=== PATIENT | male | born 1960 | race Caucasian/White ===

== ENCOUNTER 2016-08-26 23:58 | Emergency (ER) | payer SELFPAY ==
[~2016-08-26] VITALS: Ht 177.8 cm; Wt 82.0 kg
[~2016-08-26 23:58] MED LIST: Z.0.NO CURRENT MEDS
[2016-08-27 00:31] VITALS: BP 148/87; PULSE 90; RESP 16; TEMP 98.7; O2SAT 100
--- NOTE | 2016-08-27 02:13 | PD ---
HPI Chief Complaint: Medical Clearance Time Seen by Provider: 00:40 Travel History International Travel<30 days: No Contact w/Intl Traveler<30days: No Traveled to known affect area: No History of Present Illness HPI So 56-year-old man who brought to the emergency department in police custody. He has a bump to his head is complaining of headache and right sided chest pain. There is no clear history as to what happened. The patient can't recall. Patient was reportedly trespassed out of [facility]. Unclear if he resisted or not. States she otherwise has been feeling generally well and healthy. No other complaints. Was drinking tonight. History Past Medical History Medical History: Denies Significant Hx Social History Alcohol Use: Yes Tobacco Use: Yes Allergies-Medications (Allergen,Severity, Reaction): Coded Allergies: Haldol (Verified Allergy, Unknown, 02/20/07) Reported Meds & Prescriptions Reported Meds & Active Scripts Active Reported No Current Meds (Miscellaneous Medication) Misc Review of Systems Except as stated in HPI: all other systems reviewed are Neg Physical Exam Narrative GENERAL: 56-year-old man, no acute distress. SKIN: Warm and dry. HEAD: Normocephalic. Contusion of Bruising on His Right Forehead. EYES: Pupils equal and round. No scleral icterus. No injection or drainage. ENT: No nasal bleeding or discharge. Mucous membranes pink and moist. NECK: No midline tenderness. Full range of motion of the neck. CARDIOVASCULAR: Regular rate and rhythm. No murmur appreciated. RESPIRATORY: No accessory muscle use. Clear to auscultation. Breath sounds equal bilaterally. GASTROINTESTINAL: Abdomen soft, non-tender, nondistended. Hepatic and splenic margins not palpable. MUSCULOSKELETAL: No obvious deformities. No clubbing. No cyanosis. No edema. NEUROLOGICAL: Awake, generally alert. Moves all extremities. Data Data Last Documented VS Vital Signs Date Time Temp Pulse Resp B/P Pulse Ox O2 Delivery O2 Flow Rate FiO2 08/27/16 00:37 80 08/27/16 00:31 98.7 16 148/[address] Brain W/O Iv Contrast(Rout) (08/27/16 ) Ct Cerv Spine W/O Contrast (08/27/16 ) Ribs, Uni (W/Exp Cxr-Min 3vw) (08/27/16 ) MDM Medical Decision Making Medical Screen Exam Complete: Yes Emergency Medical Condition: Yes Interpretation(s) Right sided rib x-rays: 04/26/12 posterior rib fractures. Probably subacute. Head CT: Right no acute intracranial findings. Right maxillary sinus disease. C-spine CT:No fracture. Multilevel degenerative findings. Differential Diagnosis Head injury, chest injury, other Narrative Course Medical decision making 56-year-old man, presents intoxicated with evidence of head injury and probable right sided rib injuries. Patient Recall what happened. He otherwise looks well though. Is no breathing difficulties. We'll check CT head, x-ray, reassess. FINAL: Workup shows posterior rib fractures, possibly subacute. Diagnosis Primary Impression: Fracture of rib of right side Qualified Code: S22.41XA - Closed fracture of multiple ribs of right side, initial encounter Additional Instructions: Use Naprosyn as needed for pain. Follow-up with your primary doctor in the next 2-4 days. Return to the emergency department for any new or worsening symptoms. Med/Other Pt SpecificInfo: Prescription(s) given Scripts Naproxen (Naprosyn)250 Mg Kse518 Mg PO BID #14 TAB Prov:Jose Enrique Crow MD 08/27/16 Disposition: 01 DISCHARGE HOME Condition: Stable Jose Enrique Crow MD Aug 27, 2016 02:13
--- NOTE | 2016-08-27 02:18 | RADRPT ---
EXAM DATE/TIME: 08/27/2016 01:40 [facility] COMPARISON: CT CERVICAL SPINE W/O CONTRAST, August 27, 2016, 1:40. INDICATIONS : Right rib pain. MEDICAL HISTORY : None. SURGICAL HISTORY : None. ENCOUNTER: Initial ACUITY: 1 day PAIN SCORE: 8/10 LOCATION: Right flank FINDINGS: 4 views of the right-sided ribs. Fractures of the posterior 11th and 12th ribs are seen on the right. There is a suggestion of some bone callus at these fracture sites favoring subacute age. CONCLUSION: Right-sided posterior 11th and 12th rib fractures. Appearance favors subacute age. Jonathan Griffin MD on August 27, 2016 at 2:12 Board Certified Radiologist. This report was verified electronically.
--- NOTE | 2016-08-27 02:21 | RADRPT ---
EXAM DATE/TIME: 08/27/2016 01:40 [facility] COMPARISON: No previous studies available for comparison. INDICATIONS : Trauma; fall. RADIATION DOSE: 32.46 CTDIvol (mGy) MEDICAL HISTORY : Cardiovascular disease. SURGICAL HISTORY : left tib/fib surgery ENCOUNTER: Initial ACUITY: 1 day PAIN SCALE: 5/10 LOCATION: cranial TECHNIQUE: Multiple contiguous axial images were obtained of the head. Using automated exposure control and adj ustment of the mA and/or kV according to patient size, radiation dose was kept as low as reasonably a chievable to obtain optimal diagnostic quality images. FINDINGS: CEREBRUM: The ventricles are normal for age. No evidence of midline shift, mass lesion, hemorrhage or acute in farction. No extra-axial fluid collections are seen. POSTERIOR FOSSA: The cerebellum and brainstem are intact. The 4th ventricle is midline. The cerebellopontine angle i s unremarkable. EXTRACRANIAL: Moderate mucosal thickening medial right maxillary sinus. SKULL: The calvaria is intact. No evidence of skull fracture. CONCLUSION: 1. No acute intracranial findings. 2. Right maxillary sinus disease. Jonathan Griffin MD on August 27, 2016 at 2:17 Board Certified Radiologist. This report was verified electronically.
--- NOTE | 2016-08-27 02:31 | RADRPT ---
EXAM DATE/TIME: 08/27/2016 01:40 [facility] COMPARISON: No previous studies available for comparison. INDICATIONS : Trauma; fall. RADIATION DOSE: 18.69 CTDIvol (mGy) MEDICAL HISTORY : Cerebrovascular disease. SURGICAL HISTORY : left tib/fib surgery ENCOUNTER: Initial ACUITY: 1 day PAIN SCALE: 5/10 LOCATION: neck TECHNIQUE: Volumetric scanning of the cervical spine was performed. Multiplanar reconstructions in the sagittal, coronal and oblique axial planes were performed. Using automated exposure control and adjustment o f the mA and/or kV according to patient size, radiation dose was kept as low as reasonably achievable to obtain optimal diagnostic quality images. FINDINGS: VERTEBRAE: Normal vertebral body height. No evidence of fracture. ALIGNMENT: No evidence of subluxation. Emphysematous findings of the lung apices. C2-C3: Moderate severity left-sided facet arthrosis. No evidence of focal disc protrusion. Central canal nor mal diameter. Neural foraminal diameters within normal limits. C3-C4: Moderate severity facet arthrosis left greater than right. Broad-based disc osteophyte complex. Centr al canal diameter within normal limits. Neural foraminal diameters within normal limits. C4-C5: Mild bilateral facet arthrosis. Broad-based disc osteophyte complex. No evidence of focal disc protru shlomo. Central canal normal diameter. Neural foraminal diameters within normal limits. C5-C6: Broad-based disc osteophyte complex and bilateral facet arthrosis. Mild central canal narrowing. Mild bilateral neural foraminal narrowing. C6-C7: Broad-based disc osteophyte complex. Bilateral facet arthrosis. Severe left and mild right neural for aminal narrowing. Mild central canal narrowing. C7-T1: Bilateral facet arthrosis. Central canal diameter within normal limits. Mild bilateral neural foramin al narrowing. CONCLUSION: No evidence of fracture. Multilevel degenerative findings. Jonathan Griffin MD on August 27, 2016 at 2:20 Board Certified Radiologist. This report was verified electronically.
[2016-08-27] MEDS ORDERED: NAPR250T57 PO (02:34)
[2016-08-27 04:00] VITALS: BP 145/77; PULSE 80; RESP 16; O2SAT 95
[2016-08-27 06:50] VITALS: BP 145/87
== END 2016-08-27 06:50 | disposition home or self-care (01) ==
LOC: NEPE 23:58
DX: S22.41XA Multiple fractures of ribs, right side, initial encounter for closed fracture (principal); J32.0 Chronic maxillary sinusitis; R07.89 Other chest pain; R51 Headache; F10.129 Alcohol abuse with intoxication, unspecified; Z72.0 Tobacco use; X58.XXXA Exposure to other specified factors, initial encounter
CPT/HCPCS: 70450; 71101; 72125

== ENCOUNTER 2016-09-13 14:48 | Inpatient (IN) | payer SELFPAY ==
[~2016-09-13] VITALS: Ht 170.2 cm; Wt 60.8 kg
[~2016-09-13 14:48] MED LIST changes: +NAPR250T57 PO
[2016-09-13 15:00] VITALS: BP 172/84; PULSE 102; RESP 24; TEMP 100.8; O2SAT 92
--- NOTE | 2016-09-13 15:07 | PD ---
HPI Chief Complaint: Respiratory Symptoms Time Seen by Provider: 15:06 Travel History International Travel<30 days: No Contact w/Intl Traveler<30days: No Traveled to known affect area: No History of Present Illness HPI 56-year-old male was brought to the emergency room by EMS with history of respiratory distress. Oxygen saturation was in the low 90s when they arrived. Patient says that he has had couple broken ribs that was diagnosed not too long ago. He has been having progressive shortness of breath for past couple days and worse today. He has history of COPD and he is a smoker. His temperature was 100.8 upon arrival to the emergency room. He looked in respiratory distress. He has been coughing greenish sputum as per EMS and the patient. Patient received albuterol nebulizer and IV Solu-Medrol by EMS. [facility] Past Medical History Narrative Medical List of his past medical, surgical, social and family history was reviewed from the nursing note. Cerebrovascular Accident: Yes (HX OF TIA'S.) Diminished Hearing: No Past Surgical History Appendectomy: Yes Social History Alcohol Use: Yes Tobacco Use: Yes Substance Use: Yes (pot daily) Allergies-Medications (Allergen,Severity, Reaction): Coded Allergies: Haldol (Verified Allergy, Unknown, 09/13/16) Comments List of his allergies reviewed from the nursing note. Reported Meds & Prescriptions Reported Meds & Active Scripts Active No Active Prescriptions or Reported Medications Narrative Medication List of his home medications reviewed from the nursing note. Review of Systems Except as stated in HPI: all other systems reviewed are Neg Physical Exam Narrative GENERAL: Awake, alert, disheveled, moderate distress, anxious SKIN: Focused skin assessment warm/dry. HEAD: Atraumatic. Normocephalic. EYES: Pupils equal and round. No scleral icterus. No injection or drainage. ENT: No nasal bleeding or discharge. Mucous membranes pink and moist. NECK: Trachea midline. No JVD. CARDIOVASCULAR: Regular rate and rhythm. No murmur appreciated. RESPIRATORY: Moderate respiratory distress, using accessory muscles for respiration, decreased air entry bilaterally with end expiratory wheeze. GASTROINTESTINAL: Abdomen soft, non-tender, nondistended. Hepatic and splenic margins not palpable. MUSCULOSKELETAL: No obvious deformities. No clubbing. No cyanosis. No edema. NEUROLOGICAL: Awake and alert. No obvious cranial nerve deficits. Motor grossly within normal limits. Normal speech. PSYCHIATRIC: Appropriate mood and affect; insight and judgment normal. Data Data Last Documented VS Vital Signs Date Time Temp Pulse Resp B/P Pulse Ox O2 Delivery O2 Flow Rate FiO2 09/13/16 15:15 97 Nasal Cannula 2 09/13/16 15:09 09/13/16 15:00 100.8 102 24 Orders Complete Blood Count With Diff (09/13/16 15:13) Comprehensive Metabolic Panel (09/13/16 15:13) Lactic Acid Sepsis Protocol (09/13/16 15:13) Urinalysis - C+S If Indicated (09/13/16 15:13) Influenzae A/B Antigen (09/13/16 15:13) Blood Culture (09/13/16 15:13) Chest, Single Ap (09/13/16 15:13) Blood Glucose (09/13/16 15:13) Ecg Monitoring (09/13/16 15:13) Iv Access Insert/Monitor (09/13/16 15:13) Oximetry (09/13/16 15:13) Oxygen Administration (09/13/16 15:13) Piperacil-Tazo 4.5 Gm Premix (Zosyn 4.5 (09/13/16 15:13) Sodium Chlor 0.9% 1000 Ml Inj (Ns 1000 M (09/13/16 15:13) Sodium Chlor 0.9% 1000 Ml Inj (Ns 1000 M (09/13/16 15:13) Sodium Chlor 0.9% 1000 Ml Inj (Ns 1000 M (09/13/16 15:13) Methylprednisolone So Succ Inj (Solumedr (09/13/16 16:15) Albuterol-Ipratropium Neb (Duoneb Neb) (09/13/16 16:15) Admit Order (Ed Use Only) (09/13/16 17:06) Labs Laboratory Tests Test 09/13/16 09/13/16 15:22 16:05 White Blood Count 5.4 TH/MM3 Red Blood Count 4.29 MIL/MM3 Hemoglobin 14.6 GM/DL Hematocrit 41.3 % Mean Corpuscular Volume 96.3 FL Mean Corpuscular Hemoglobin 34.0 PG Mean Corpuscular Hemoglobin 35.3 % Concent Red Cell Distribution Width 13.9 % Platelet Count 170 TH/MM3 Mean Platelet Volume 8.5 FL Neutrophils (%) (Auto) 56.6 % Lymphocytes (%) (Auto) 23.1 % Monocytes (%) (Auto) 20.0 % Eosinophils (%) (Auto) 0.1 % Basophils (%) (Auto) 0.2 % Neutrophils # (Auto) 3.0 TH/MM3 Lymphocytes # (Auto) 1.2 TH/MM3 Monocytes # (Auto) 1.1 TH/MM3 Eosinophils # (Auto) 0.0 TH/MM3 Basophils # (Auto) 0.0 TH/MM3 CBC Comment DIFF FINAL Differential Comment Sodium Level 132 MEQ/L Potassium Level 3.5 MEQ/L Chloride Level 96 MEQ/L Carbon Dioxide Level 27.7 MEQ/L Anion Gap 8 MEQ/L Blood Urea Nitrogen 12 MG/DL Creatinine 0.63 MG/DL Estimat Glomerular Filtration 131 ML/MIN Rate Random Glucose 121 MG/DL Lactic Acid Level 1.7 mmol/L Calcium Level 9.2 MG/DL Total Bilirubin 1.0 MG/DL Aspartate Amino Transf 65 U/L (AST/SGOT) Alanine Aminotransferase 108 U/L (ALT/SGPT) Alkaline Phosphatase 101 U/L Total Protein 7.9 GM/DL Albumin 3.4 GM/DL Folate 16.6 NG/ML Urine Color YELLOW Urine Turbidity CLEAR Urine pH 6.5 Urine Specific [place] 1.010 Urine Protein 100 mg/dL Urine Glucose (UA) NEG mg/dL Urine Ketones 10 mg/dL Urine Occult Blood SMALL Urine Nitrite NEG Urine Bilirubin NEG Urine Urobilinogen LESS THAN 2.0 MG/DL Urine Leukocyte Esterase NEG Urine RBC 1 /hpf Urine WBC 1 /hpf Microscopic Urinalysis Comment CATH-CULT NOT IND MDM Medical Decision Making Medical Screen Exam Complete: Yes Emergency Medical Condition: Yes Medical Record Reviewed: Yes Differential Diagnosis Pneumonia, influenza, sepsis, pneumothorax Narrative Course 4:43 PM patient was Given 3 duo nebs. I covered him with Zosyn and IV fluid as per sepsis protocol based on the fever and clear source of infection. However chest x-ray was read as negative and lactic acid is not elevated. Patient is being ambulated in the room air to see his oxygen saturation. If the oxygen saturation is less than 92% he will be admitted. Otherwise he'll be discharged home. 5 PM patient ambulated and saturation did not go above 92%. He was extremely short of breath and wheezing from the walk. I decided to admit him at this point. Procedures EKG Prior to Arrival: No Diagnosis Primary Impression: Respiratory distress Additional Impressions: Bronchitis Acute exacerbation of chronic obstructive pulmonary disease (COPD) Scripts No Active Prescriptions or Reported Meds Janine Sam MD Sep 13, 2016 15:07
[2016-09-13] MEDS ORDERED: SODIUM CHLOR 0.9% 1000 ML INJ 100 ML IV ONE (15:13)
[2016-09-13] MEDS ORDERED: PIPERACIL-TAZO 4.5 GM PREMIX 100 ML IV STA (15:13)
[2016-09-13] MEDS ORDERED: SODIUM CHLOR 0.9% 1000 ML INJ 1,000 ML IV ONE ×2 (15:13)
[2016-09-13 15:15] VITALS: O2SAT 97
[2016-09-13 15:35] LABS: BASOPHIL % 0.2 % (0.0-2.0); EOSINOPHIL % 0.1 % (0.0-4.0); HEMATOCRIT 41.3 % (39.0-51.0); HEMO FLAGS DIFF FINAL; LYMPH % 23.1 % (9.0-44.0); LYMPHOCYTE # 1.2 TH/MM3 (1.0-4.8); MEAN CELL VOLUME 96.3 FL (80.0-100.0); MEAN CORPUSCULAR HGB CONC 35.3 % (32.0-36.0); NEUT % 56.6 % (16.0-70.0); PLATELET COUNT 170 TH/MM3 (150-450); RED BLOOD COUNT 4.29 MIL/MM3 (4.50-5.90); RED CELL DISTRIBUTION WIDTH 13.9 % (11.6-17.2); WHITE BLOOD COUNT 5.4 TH/MM3 (4.0-11.0)
--- NOTE | 2016-09-13 15:54 | RADRPT ---
EXAM DATE/TIME: 09/13/2016 15:18 [facility] COMPARISON: No previous studies available for comparison. INDICATIONS : Shortness of Breath x 3 days. Pt denies chest pains at this time. Pt is a 1/2 ppd smoker. MEDICAL HISTORY : None. SURGICAL HISTORY : None. ENCOUNTER: Initial ACUITY: 1 day PAIN SCORE: 0/10 LOCATION: Bilateral chest FINDINGS: A single view of the chest demonstrates the lungs to be symmetrically aerated without evidence of mas s, infiltrate or effusion. The cardiomediastinal contours are unremarkable. Osseous structures are intact. CONCLUSION: No acute disease. Cayetano Shea Jr., MD on September 13, 2016 at 15:51 Board Certified Radiologist. This report was verified electronically.
[2016-09-13 15:59] LABS: ALT (GPT) 108 U/L (12-78); ANION GAP 8 MEQ/L (5-15); AST (GOT) 65 U/L (15-37); BICARBONATE 27.7 MEQ/L (21.0-32.0); BLOOD UREA NITROGEN 12 MG/DL (7-18); CHLORIDE 96 MEQ/L (98-107); GLOMERULAR FILTRATION RATE 131 ML/MIN (>89); POTASSIUM 3.5 MEQ/L (3.5-5.1); SODIUM (NA) 132 MEQ/L (136-145)
[2016-09-13 16:01] LABS: ALKALINE PHOSPHATASE 101 U/L (45-117)
[2016-09-13] MEDS ORDERED: methylPREDNISolone SOD SUCC 125 MG/2 ML VIAL IVP ONE (16:15)
[2016-09-13] MEDS: RESP: ALBUTEROL 2.5 MG/IPRATROPIUM 0.5 MG NEB (SCH) INH ×2 (16:18→21:47)
[2016-09-13 16:31] LABS: BLOOD, URINE SMALL (NEG); GLUCOSE,URINE NEG (NEG); KETONE, URINE 10 mg/dL (NEG); NITRITE,URINE NEG (NEG); PH, URINE 6.5 (5.0-8.5); URINE COLOR YELLOW (YELLW/STRAW)
[2016-09-13 16:34] LABS: COMMENT (UR) CATH-CULT NOT IND; CULTURE IF INDICATED CATH CULTURE NOT IND
[2016-09-13] MEDS ORDERED: MAGNESIUM HYDROXIDE SUSP 30 ML CUP PO PRN (18:30)
[2016-09-13] MEDS ORDERED: ACETAMINOPHEN 325 MG TAB PO PRN (18:30)
[2016-09-13] MEDS ORDERED: ONDANSETRON HCL 4 MG/2 ML VIAL IVP PRN (18:30)
[2016-09-13] MEDS ORDERED: SODIUM CHLORIDE 0.9% FLUSH 10 ML FLUSH IV FLUSH PRN (18:30)
[2016-09-13] MEDS ORDERED: LORazepam 2 MG TAB PO PRN (18:30)
[2016-09-13] MEDS ORDERED: FLUMAZENIL 0.5 MG/5 ML VIAL IV PUSH PRN (18:30)
[2016-09-13] MEDS ORDERED: LORazepam 2 MG/ML VIAL IV PUSH PRN ×4 (18:30)
[2016-09-13] MEDS ORDERED: SIMETHICONE 125 MG CHEWABLE TAB PO PRN (18:30)
[2016-09-13] MEDS ORDERED: RESP: ALBUTEROL 2.5 MG/3 ML NEB (PRN) INH (18:30)
[2016-09-13] MEDS ORDERED: NALOXONE HCL 0.4 MG/ML AMP IV PRN (18:30)
--- NOTE | 2016-09-13 18:58 | HHI.HP ---
[facility] No Primary Care Physician Admission Diagnosis respiratory distress, acute COPD exacerbation, bronchitis Diagnoses: Chief Complaint: Shortness of breath, fever, cough Travel History International Travel<30 Days: No Contact w/Intl Traveler <30 Da: No Traveled to Known Affected Are: No History of Present Illness Patient is a 56 year old male with primary medical history of TIA, COPD, respiratory distress who came in to the hospital with complaints of increasing shortness of breath. Patient states that about 2 days ago he felt that he is coming down with a cold and thought that he has pneumonia because he has increased cough, feverish, and chills. Reports lack of appetite and has been having diarrhea for 3 days. Patient states also that he recently had a fall while getting into the curb and was diagnosed with rib fractures. His cough has been progressing and he did not take anything to relieved his symptoms that he came to the hospital. Patient also states that he's been having diarrhea 3 days. Complaints of mild abdominal pain and lower abdominal quadrant area. Reports mild cramping. Denies any nausea, vomiting. Denies palpitations, headaches, dizziness. In the ED, patient was given Zosyn, Solu-Medrol and nebulization treatment. Walk test was done. Patient has increasing shortness of breath with 10-20 feet of ambulation without oxygen. Review of Systems Except as stated in HPI: all other systems reviewed are Neg Past Family Social History Past Medical History COPD TIA Past Surgical History Left knee surgery Appendectomy Reported Medications None Allergies: Coded Allergies: Haldol (Verified Allergy, Unknown, 09/13/16) Family History Diabetes and cancer in the family Social History Alcohol use whiskey one point daily Current smoker half pack a day 47 years Denies illicit drug use Physical Exam Vital Signs Vital Signs Date Time Temp Pulse Resp B/P Pulse Ox O2 Delivery O2 Flow Rate FiO2 09/13/16 15:15 97 Nasal Cannula 2 09/13/16 15:09 09/13/16 15:00 100.8 102 24 172/84 92 Room Air Physical Exam GENERAL: This is a well-nourished, well-developed patient, short of breath when talking. SKIN: No rashes, ecchymoses or lesions. Cool and dry. HEAD: Atraumatic. Normocephalic. No temporal or scalp tenderness. EYES: Pupils equal round and reactive. Extraocular motions intact. No scleral icterus. No injection or drainage. ENT: Nose without bleeding. Throat without erythema. Uvula midline. Airway patent. NECK: Trachea midline. No JVD or lymphadenopathy. Supple, nontender, no meningeal signs. CARDIOVASCULAR: Regular rate and rhythm without murmurs, gallops, or rubs. RESPIRATORY: Clear to auscultation. Breath sounds equal bilaterally. No wheezes , rales, or rhonchi. GASTROINTESTINAL: Abdomen soft, nondistended. Mild tenderness to palpation lower quadrant. Bowel sounds active 4 MUSCULOSKELETAL: Extremities without clubbing, cyanosis, or edema. NEUROLOGICAL: Awake and alert. No focal neuro deficit. Motor and sensory grossly within normal limits. Normal speech. Laboratory Laboratory Tests Test 09/13/16 09/13/16 15:22 16:05 White Blood Count 5.4 Red Blood Count 4.29 Hemoglobin 14.6 Hematocrit 41.3 Mean Corpuscular Volume 96.3 Mean Corpuscular Hemoglobin 34.0 Mean Corpuscular Hemoglobin 35.3 Concent Red Cell Distribution Width 13.9 Platelet Count 170 Mean Platelet Volume 8.5 Neutrophils (%) (Auto) 56.6 Lymphocytes (%) (Auto) 23.1 Monocytes (%) (Auto) 20.0 Eosinophils (%) (Auto) 0.1 Basophils (%) (Auto) 0.2 Neutrophils # (Auto) 3.0 Lymphocytes # (Auto) 1.2 Monocytes # (Auto) 1.1 Eosinophils # (Auto) 0.0 Basophils # (Auto) 0.0 CBC Comment DIFF FINAL Differential Comment Sodium Level 132 Potassium Level 3.5 Chloride Level 96 Carbon Dioxide Level 27.7 Anion Gap 8 Blood Urea Nitrogen 12 Creatinine 0.63 Estimat Glomerular Filtration 131 Rate Random Glucose 121 Lactic Acid Level 1.7 Calcium Level 9.2 Total Bilirubin 1.0 Aspartate Amino Transf 65 (AST/SGOT) Alanine Aminotransferase 108 (ALT/SGPT) Alkaline Phosphatase 101 Total Protein 7.9 Albumin 3.4 Urine Color YELLOW Urine Turbidity CLEAR Urine pH 6.5 Urine Specific [place] 1.010 Urine Protein 100 Urine Glucose (UA) NEG Urine Ketones 10 Urine Occult Blood SMALL Urine Nitrite NEG Urine Bilirubin NEG Urine Urobilinogen LESS THAN 2.0 Urine Leukocyte Esterase NEG Urine RBC 1 Urine WBC 1 Microscopic Urinalysis Comment CATH-CULT NOT IND Date/Time Procedure Status Source Growth 09/13/16 15:22 Influenza Types A,B Antigen (DAMARI) - Final Complete Nasal Aspirate NEGATIVE FOR FLU A AND B ANTIGEN.... 09/13/16 15:22 Aerobic Blood Culture Received Blood Peripheral Pending 09/13/16 15:22 Anaerobic Blood Culture Received Blood Peripheral Pending Result Diagram: 09/13/16 1522 09/13/16 1522 Imaging Last Impressions Chest X-Ray 09/13/16 1513 Signed Impressions: Service Date/Time: , September 13, 2016 15:18 - CONCLUSION: No acute disease. Cayetano Shea Jr., MD Assessment and Plan Problem List: (1) Acute exacerbation of chronic obstructive pulmonary disease (COPD) ICD Code: J44.1 Status: Acute (2) Bronchitis ICD Code: J40 Status: Acute (3) Tobacco abuse ICD Code: Z72.0 Status: Acute (4) Alcohol abuse ICD Code: F10.10 Status: Acute Assessment and Plan Patient is a 56 year old male with primary medical history of TIA, COPD, respiratory distress who came in to the hospital with complaints of increasing shortness of breath. Patient states that about 2 days ago he felt that he is coming down with a cold and thought that he has pneumonia because he has increased cough, feverish, and chills. Reports lack of appetite and has been having diarrhea for 3 days. Patient states also that he recently had a fall while getting into the curb and was diagnosed with rib fractures. His cough has been progressing and he did not take anything to relieved his symptoms that he came to the hospital. COPD acute on chronic exacerbation - Patient was given Zosyn, Solu-Medrol in the ED 3 treatments of nebulization. - Chest x-ray no acute disease - Levaquin 750mg IV - Solu-Medrol 40 mg 3 times a day, will switch to by mouth when patient improves - DuoNeb's every 6 hours scheduled, albuterol every 2 hours when necessary for SOB - O2 2 L nasal cannula, wean off keep O2 sat greater than 90% - Monitor respiratory status Abdominal discomfort Diarrhea - Collect stool for C. difficile - Lactinex twice a day - Simethicone for bloating - If stool is negative for C. difficile will start pantoprazole Alcohol abuse - [place] protocol - Monitor for withdrawal Tobacco abuse - Patient counseled. Discussed risks and fatal adverse effects of continued smoking. Verbalized understanding. - Nicotine patch Hyponatremia - Possibly secondary to diarrhea, and poor by mouth nutrition - Recheck CMP tomorrow Elevated AST and ALT - Recheck CMP DVT prop SCDs, patient ambulatory Written by Titi Bartholomew, acting as scribe for Dr. Benton on 09/13/16 at 18:56. Code Status Full code Discussed Condition With Patient, nursing, ED attending Titi Randall Sep 13, 2016 18:58
[2016-09-13 19:54] VITALS: BP 167/80; PULSE 99; RESP 20; O2SAT 100
[2016-09-13] MEDS: LEVOFLOXACIN 750 MG PREMIX INJ 150 ML IV SCH (20:10)
[2016-09-13] MEDS: NICOTINE 21 MG/24 HR PATCH T-DERMAL SCH (20:10)
[2016-09-13] MEDS: THIAMINE HCL 100 MG TAB PO SCH (20:10)
[2016-09-13] MEDS: SODIUM CHLORIDE 0.9% FLUSH 10 ML FLUSH IV FLUSH SCH (20:11)
[2016-09-13] MEDS: LACTOBACILLUS ACIDOPHILUS TAB PO SCH (21:00)
[2016-09-13 21:38] VITALS: BP 174/86; PULSE 75; RESP 18; O2SAT 95
[2016-09-13] MEDS: methylPREDNISolone SOD SUCC 125 MG/2 ML VIAL IVP SCH (23:11)
[2016-09-14] VITALS (9 sets, daily range): BP systolic 155–191; BP diastolic 78–97; PULSE 65–92; RESP 16–20; TEMP 97.7–98.6; O2SAT 90–99
[2016-09-14] MEDS: RESP: ALBUTEROL 2.5 MG/IPRATROPIUM 0.5 MG NEB (SCH) INH ×3 (04:00→20:46)
[2016-09-14 05:55] LABS: AUTOMATED NEUTROPHIL # 3.2 TH/MM3 (1.8-7.7); BASOPHIL % 0.3 % (0.0-2.0); EOSINOPHIL % 0.1 % (0.0-4.0); HEMATOCRIT 38.4 % (39.0-51.0); HEMO FLAGS DIFF FINAL; LYMPH % 12.7 % (9.0-44.0); LYMPHOCYTE # 0.6 TH/MM3 (1.0-4.8); MEAN CELL VOLUME 97.7 FL (80.0-100.0); MEAN CORPUSCULAR HEMOGLOBIN 34.3 PG (27.0-34.0); MEAN CORPUSCULAR HGB CONC 35.1 % (32.0-36.0); MONO % 13.3 % (0.0-8.0); NEUT % 73.6 % (16.0-70.0); PLATELET COUNT 164 TH/MM3 (150-450); RED BLOOD COUNT 3.93 MIL/MM3 (4.50-5.90); RED CELL DISTRIBUTION WIDTH 13.8 % (11.6-17.2); WHITE BLOOD COUNT 4.4 TH/MM3 (4.0-11.0)
[2016-09-14 06:16] LABS: BICARBONATE 27.3 MEQ/L (21.0-32.0); POTASSIUM 4.2 MEQ/L (3.5-5.1)
[2016-09-14] MEDS: methylPREDNISolone SOD SUCC 125 MG/2 ML VIAL IVP SCH (06:21)
[2016-09-14] MEDS: SODIUM CHLORIDE 0.9% FLUSH 10 ML FLUSH IV FLUSH SCH ×2 (09:00→20:49)
[2016-09-14] MEDS: NICOTINE 21 MG/24 HR PATCH T-DERMAL SCH (09:00)
[2016-09-14] MEDS: REMOVE OLD PATCH T-DERMAL SCH (09:00)
[2016-09-14] MEDS: THIAMINE HCL 100 MG TAB PO SCH (09:18)
[2016-09-14] MEDS: LACTOBACILLUS ACIDOPHILUS TAB PO SCH ×2 (09:18→20:49)
[2016-09-14] MEDS: LORazepam 1 MG TAB PO PRN (09:18)
[2016-09-14] MEDS: amLODIPine BESYLATE 5 MG TAB PO SCH (09:19)
--- NOTE | 2016-09-14 12:12 | HHI.PR ---
Subjective Remarks Follow up for COPD exacerbation. The patient complains of feeling weak and winded today. He states she's been coughing up green sputum for the past 4 days. Feels like his sputum is a little thinner today. He reports fevers and chills overnight. He is homeless and does not follow thing physicians are taking any medications at home. Objective Vitals Vital Signs Date Time Temp Pulse Resp B/P Pulse Ox O2 Delivery O2 Flow Rate FiO2 09/14/16 12:02 98.1 92 18 167/87 95 09/14/16 09:15 98.6 65 20 191/93 90 09/14/16 08:13 78 16 189/89 97 Nasal Cannula 2 09/14/16 03:29 85 18 158/78 99 Nasal Cannula 2 09/14/16 01:08 67 18 178/89 99 Nasal Cannula 2 09/13/16 21:38 75 18 174/86 95 Nasal Cannula 2 09/13/16 19:54 99 20 167/80 100 Room Air 09/13/16 15:15 97 Nasal Cannula 2 09/13/16 15:09 09/13/16 15:00 100.8 102 24 172/84 92 Room Air Result Diagram: 09/14/16 0516 09/14/16 0516 Imaging Last Impressions Chest X-Ray 09/13/16 1513 Signed Impressions: Service Date/Time: August 15:18 - CONCLUSION: No acute disease. Cayetano Shea Jr., MD Objective Remarks GENERAL: Well-developed well-nourished. Unkempt, disheveled. In no acute distress. SKIN: Warm and dry. No lesions noted. HEENT: Normocephalic. Pupils equal and round. Mucous membranes pink and moist. CARDIOVASCULAR: Regular rate and rhythm. No murmur appreciated. RESPIRATORY: No accessory muscle use. Clear to auscultation. Breath sounds equal bilaterally. Diffuse wheezing throughout. GASTROINTESTINAL: Abdomen soft, non-tender, nondistended. Bowel sounds x4. MUSCULOSKELETAL: No obvious deformities. No clubbing or cyanosis. No edema. NEUROLOGICAL: Awake and alert. No focal neurological deficits. Moves upper and lower extremities spontaneously. Normal speech. PSYCHIATRIC: Appropriate mood and affect; insight and judgment normal. A/P Problem List: (1) Acute exacerbation of chronic obstructive pulmonary disease (COPD) ICD Code: J44.1 Status: Acute (2) Bronchitis ICD Code: J40 Status: Acute (3) Tobacco abuse ICD Code: Z72.0 Status: Acute (4) Alcohol abuse ICD Code: F10.10 Status: Acute Assessment and Plan Patient is a 56 year old male with primary medical history of TIA, COPD, respiratory distress who came in to the hospital with complaints of increasing shortness of breath. Patient states that about 2 days ago he felt that he is coming down with a cold and thought that he has pneumonia because he has increased cough, feverish, and chills. Reports lack of appetite and has been having diarrhea for 3 days. Patient states also that he recently had a fall while getting into the curb and was diagnosed with rib fractures. His cough has been progressing and he did not take anything to relieved his symptoms that he came to the hospital. COPD acute on chronic exacerbation Reviewed: Chest x-ray no acute disease. Tmax 100.8, no leukocytosis. - Continue Levaquin 750mg IV - IV Solu-Medrol 40 mg 4 times a day, will switch to by mouth when patient improves - DuoNeb's QID scheduled, albuterol every 2 hours when necessary for SOB - O2 2 L nasal cannula, wean off keep O2 sat greater than 90% -Guaifenesin -Check sputum culture and urinary antigens Accelerated hypertension - BP is not well-controlled -Started amlodipine 5 mg daily, BP improving -Clonidine as needed Abdominal discomfort Diarrhea No further - Collect stool for C. difficile if further diarrhea - Lactinex twice a day - Simethicone prn for bloating Alcohol abuse - [facility] protocol - Monitor for withdrawal Tobacco abuse - Patient counseling - Nicotine patch Hyponatremia Sodium improved to 139 with IVF on repeat CMP -Resolved Elevated AST and ALT - likely from alcohol abuse -Monitor LFTs DVT prop SCDs, patient ambulatory Written by Carlos Krishnamurthy, acting as scribe for Dr. Medrano on 09/14/16 at 12:11. All or portions of this note were transcribed by lu MURRAY. I, Dr. Meggan Medrano personally performed the history, physical exam, and medical decision making; and confirmed the accuracy of the information in the transcribed note. Authenticated by Dr. Meggan Medrano on 09/14/16 at 12:11. Discharge Planning Case management consulted for assistance with outpatient follow-up. Carlos Krishnamurthy Sep 14, 2016 12:12 Meggan Medrano MD Sep 14, 2016 14:24
[2016-09-14] MEDS ORDERED: ENALAPRILAT 2.5 MG/2 ML VIAL IV PUSH PRN (12:15)
[2016-09-14] MEDS: methylPREDNISolone SOD SUCC 40 MG/1 ML VIAL IV SCH ×3 (13:02→23:52)
[2016-09-14 14:31] LABS: INDIRECT BILIRUBIN 0.3 MG/DL (0.0-0.8); TOTAL BILIRUBIN ADULT 0.4 MG/DL (0.2-1.0)
--- NOTE | 2016-09-14 16:21 | EKG ---
Date Performed: 09/13/2016 Time Performed: 15:13:08 PTAGE: 56 years EKG: SINUS TACHYCARDIA WITH SHORT HI INTERVAL WITH OCCASIONAL VENTRICULAR PREMATURE COMPLEXES AB NORMAL RHYTHM ECG INTERPRETATION BASED ON A DEFAULT AGE OF 40 YEARS NO PREVIOUS TRACING DOCTOR: Sandy Norman Interpretating Date/Time 09/14/2016 16:19:45
[2016-09-14] MEDS: cloNIDine HCL 0.1 MG TAB PO PRN (17:51)
[2016-09-14] MEDS: guaiFENesin E.R. 600 MG TAB PO SCH ×2 (17:55→20:49)
[2016-09-14] MEDS: LEVOFLOXACIN 750 MG PREMIX INJ 150 ML IV SCH (20:49)
[2016-09-15] VITALS (9 sets, daily range): BP systolic 145–172; BP diastolic 78–92; PULSE 61–82; RESP 20–22; TEMP 96.3–98.9; O2SAT 94–99
[2016-09-15] MEDS: methylPREDNISolone SOD SUCC 40 MG/1 ML VIAL IV SCH ×3 (05:56→20:59)
[2016-09-15] MEDS: LORazepam 1 MG TAB PO PRN ×2 (06:00→20:58)
[2016-09-15] MEDS: NICOTINE 21 MG/24 HR PATCH T-DERMAL SCH (07:17)
[2016-09-15] MEDS: REMOVE OLD PATCH T-DERMAL SCH (07:17)
[2016-09-15] MEDS: guaiFENesin E.R. 600 MG TAB PO SCH ×2 (07:18→20:58)
[2016-09-15] MEDS: amLODIPine BESYLATE 5 MG TAB PO SCH (07:18)
[2016-09-15] MEDS: THIAMINE HCL 100 MG TAB PO SCH (07:18)
[2016-09-15] MEDS: LACTOBACILLUS ACIDOPHILUS TAB PO SCH ×2 (07:18→20:58)
[2016-09-15] MEDS: SODIUM CHLORIDE 0.9% FLUSH 10 ML FLUSH IV FLUSH SCH ×2 (07:18→20:59)
[2016-09-15] MEDS: RESP: ALBUTEROL 2.5 MG/IPRATROPIUM 0.5 MG NEB (SCH) INH ×3 (07:30→19:47)
[2016-09-15] MEDS ORDERED: amLODIPine BESYLATE 5 MG TAB PO SCH (08:15)
--- NOTE | 2016-09-15 08:19 | HHI.PR ---
Subjective Remarks Follow-up for COPD exacerbation. The patient continues to complain of shortness of breath, although it is improving. He is coughing up dark sputum. He had an episode of loose stools overnight. States loose stools were much more frequent prior to admission. He denies any abdominal pain. He reports that his appetite is improving, tolerating diet, denies any nausea. Wants to quit smoking. Objective Vitals Vital Signs Date Time Temp Pulse Resp B/P Pulse Ox O2 Delivery O2 Flow Rate FiO2 09/15/16 07:34 96.3 61 22 172/92 95 09/15/16 07:31 97 Nasal Cannula 2.00 09/15/16 03:58 98.7 73 20 156/78 99 09/15/16 00:12 97.6 65 20 165/87 97 09/14/16 20:46 96 Nasal Cannula 2.00 09/14/16 19:24 98.4 68 20 155/84 96 09/14/16 16:15 97.7 74 18 164/97 96 09/14/16 12:32 95 Nasal Cannula 2.00 09/14/16 12:02 98.1 92 18 167/87 95 09/14/16 09:15 98.6 65 20 191/93 90 I/O 09/14/16 09/14/16 09/14/16 09/15/16 09/15/16 09/15/16 07:00 15:00 23:00 07:00 15:00 23:00 Intake Total 510 ml Balance 510 ml Intake Oral 360 ml IV Total 150 ml # Voids 1 2 1 Result Diagram: 09/14/16 0516 09/14/16 0516 Imaging Last Impressions Chest X-Ray 09/13/16 1513 Signed Impressions: Service Date/Time: August 15:18 - CONCLUSION: No acute disease. Cayetano Shea Jr., MD Objective Remarks GENERAL: Well-developed well-nourished. Unkempt, disheveled. In no acute distress. SKIN: Warm and dry. No lesions noted. HEENT: Normocephalic. Pupils equal and round. Mucous membranes pink and moist. CARDIOVASCULAR: Regular rate and rhythm. No murmur appreciated. RESPIRATORY: No accessory muscle use. Clear to auscultation. Breath sounds equal bilaterally. Diffuse wheezes in all lung chou. GASTROINTESTINAL: Abdomen soft, non-tender, nondistended. Bowel sounds x4. MUSCULOSKELETAL: No obvious deformities. No clubbing or cyanosis. No edema. NEUROLOGICAL: Awake and alert. No focal neurological deficits. Moves upper and lower extremities spontaneously. Normal speech. PSYCHIATRIC: Appropriate mood and affect; insight and judgment normal. A/P Problem List: (1) Acute exacerbation of chronic obstructive pulmonary disease (COPD) ICD Code: J44.1 Status: Acute (2) Bronchitis ICD Code: J40 Status: Acute (3) Tobacco abuse ICD Code: Z72.0 Status: Chronic (4) Alcohol abuse ICD Code: F10.10 Status: Chronic Assessment and Plan Patient is a 56 year old male with primary medical history of TIA, COPD, respiratory distress who came in to the hospital with complaints of increasing shortness of breath. Patient states that about 2 days ago he felt that he is coming down with a cold and thought that he has pneumonia because he has increased cough, feverish, and chills. Reports lack of appetite and has been having diarrhea for 3 days. Patient states also that he recently had a fall while getting into the curb and was diagnosed with rib fractures. His cough has been progressing and he did not take anything to relieved his symptoms that he came to the hospital. COPD acute on chronic exacerbation Reviewed: Chest x-ray no acute disease. Tmax 100.8 at admission, none since. No leukocytosis. - Continue Levaquin 750mg IV - IV Solu-Medrol 40 mg 4 times a day, will switch to by mouth when patient improves - DuoNeb's QID scheduled, albuterol every 2 hours when necessary for SOB - O2 2 L nasal cannula, wean off keep O2 sat greater than 90% -Guaifenesin -Check sputum culture and urinary antigens Accelerated hypertension - BP is not well-controlled, but better overnight after starting antihypertensives. -Started amlodipine 5 mg daily, increase to 10 mg -Clonidine as needed Abdominal discomfort Diarrhea x 1 - Send stool for culture - Lactinex twice a day - Simethicone prn for bloating Alcohol abuse - [facility] protocol - Monitor for withdrawal Tobacco abuse - Counseled on cessation - Nicotine patch Hyponatremia Sodium improved to 139 with IVF on repeat CMP -Resolved Elevated AST and ALT - likely from alcohol abuse -LFTs trending down DVT prop SCDs, patient ambulatory Discharge Planning Case management consulted for assistance with outpatient follow-up. Carlos Krishnamurthy Sep 15, 2016 08:19 Joe Souza DO Sep 15, 2016 16:50
[2016-09-15] MEDS: LEVOFLOXACIN 750 MG PREMIX INJ 150 ML IV SCH (20:58)
[2016-09-16] VITALS (8 sets, daily range): BP systolic 140–192; BP diastolic 70–96; PULSE 55–80; RESP 16–20; TEMP 97.5–98; O2SAT 93–96
[2016-09-16 02:44] LABS: C. DIFF EPI 027 PRESUMPTIVE NEGATIVE (NEGATIVE); C. DIFF TOXIN PCR POSITIVE (NEGATIVE)
[2016-09-16] MEDS: LORazepam 1 MG TAB PO PRN ×2 (06:01→09:46)
[2016-09-16] MEDS: methylPREDNISolone SOD SUCC 40 MG/1 ML VIAL IV SCH ×3 (06:01→21:27)
[2016-09-16] MEDS: cloNIDine HCL 0.1 MG TAB PO PRN (06:01)
[2016-09-16] MEDS: RESP: ALBUTEROL 2.5 MG/IPRATROPIUM 0.5 MG NEB (SCH) INH ×3 (07:42→21:42)
--- NOTE | 2016-09-16 08:22 | HHI.PR ---
Subjective Remarks Follow-up for COPD, C. difficile, hypertension. The patient is feeling much better today. He feels like his breathing is at baseline. He had one episode of semi-formed stools yesterday, no further bowel movements since. He does have some mild upper abdominal discomfort. He will need help with prescriptions at discharge. He verbalizes understanding of the need for outpatient follow-up for medical conditions. Objective Vitals Vital Signs Date Time Temp Pulse Resp B/P Pulse Ox O2 Delivery O2 Flow Rate FiO2 09/16/16 07:43 95 09/16/16 07:28 97.7 55 20 192/89 94 09/16/16 03:43 98.0 68 20 172/96 95 09/16/16 00:04 97.5 80 20 160/90 96 09/15/16 19:45 98 09/15/16 19:20 97.6 77 20 162/82 95 09/15/16 15:35 98.9 77 22 170/85 95 09/15/16 13:01 96 21 09/15/16 11:21 97.9 82 20 145/79 94 I/O 09/15/16 09/15/16 09/15/16 09/16/16 09/16/16 09/16/16 07:00 15:00 23:00 07:00 15:00 23:00 Intake Total 510 ml 390 ml 120 ml Balance 510 ml 390 ml 120 ml Intake Oral 360 ml 240 ml 120 ml IV Total 150 ml 150 ml # Voids 1 1 1 Result Diagram: 09/14/16 0516 09/14/16 0516 Imaging Last Impressions Chest X-Ray 09/13/16 1513 Signed Impressions: Service Date/Time: August 15:18 - CONCLUSION: No acute disease. Cayetano Shea Jr., MD Objective Remarks GENERAL: Well-developed well-nourished. Unkempt, disheveled. In no acute distress. SKIN: Warm and dry. No lesions noted. HEENT: Normocephalic. Pupils equal and round. Mucous membranes pink and moist. CARDIOVASCULAR: Regular rate and rhythm. No murmur appreciated. RESPIRATORY: No accessory muscle use. Clear to auscultation. Breath sounds equal bilaterally. Occasional faint wheezing. GASTROINTESTINAL: Abdomen soft, mild epigastric TTP, nondistended. Bowel sounds x4. MUSCULOSKELETAL: No obvious deformities. No clubbing or cyanosis. No edema. NEUROLOGICAL: Awake and alert. No focal neurological deficits. Moves upper and lower extremities spontaneously. Normal speech. PSYCHIATRIC: Appropriate mood and affect; insight and judgment normal. Medications and IVs Current Medications Medications (Trade) Dose Ordered Sig/Jeramy Route Start Time Stop Time Status Last Admin (Romazicon Inj) 0.2 mg Q1M PRN IV PUSH 09/13/16 18:30 (Ativan) 1 mg Q4H PRN PO 09/13/16 18:30 09/16/16 09:46 (Ativan Inj) 1 mg Q4H PRN IV PUSH 09/13/16 18:30 (Ativan) 2 mg Q2H PRN PO 09/13/16 18:30 (Ativan Inj) 2 mg Q2H PRN IV PUSH 09/13/16 18:30 (Ativan Inj) 2 mg Q1H PRN IV PUSH 09/13/16 18:30 (Ativan Inj) 2 mg Q15M PRN IV PUSH 09/13/16 18:30 (Vitamin B1) 100 mg DAILY PO 09/13/16 18:30 09/16/16 09:41 (NS Flush) 2 ml UNSCH PRN IV FLUSH 09/13/16 18:30 (NS Flush) 2 ml BID IV FLUSH 09/13/16 21:00 09/16/16 09:43 (Tylenol) 650 mg Q4H PRN PO 09/13/16 18:30 (Zofran Inj) 4 mg Q6H PRN IVP 09/13/16 18:30 (Milk Of Magnesia Liq) 30 ml Q12H PRN PO 09/13/16 18:30 (Narcan Inj) 0.4 mg UNSCH PRN IV 09/13/16 18:30 (Phazyme Chew) 125 mg Q8HR PRN PO 09/13/16 18:30 (Habitrol 21 Mg Patch.24 Hr) 1 patch DAILY T-DERMAL 09/13/16 18:30 09/16/16 09:39 Miscellaneous Information 1 DAILY T-DERMAL 09/14/16 09:00 09/16/16 09:00 (Mucinex Er) 600 mg BID PO 09/14/16 13:15 09/16/16 09:41 (Catapres) 0.1 mg Q6H PRN PO 09/14/16 13:15 09/16/16 06:01 (Norvasc) 10 mg DAILY PO 09/16/16 09:00 09/16/16 09:41 (Flagyl) 500 mg Q8HR PO 09/16/16 07:15 09/16/16 12:42 (SoluMEDROL INJ) 40 mg Q12HR IV 09/16/16 18:00 (Pepcid) 20 mg Q12HR PO 09/16/16 09:00 09/16/16 09:42 (Lactinex) 1 tab TID PO 09/16/16 09:00 09/16/16 12:42 (Prinivil) 20 mg DAILY PO 09/17/16 09:00 A/P Problem List: (1) Acute exacerbation of chronic obstructive pulmonary disease (COPD) ICD Code: J44.1 Status: Acute (2) Bronchitis ICD Code: J40 Status: Acute (3) Tobacco abuse ICD Code: Z72.0 Status: Chronic (4) Alcohol abuse ICD Code: F10.10 Status: Chronic Assessment and Plan Patient is a 56 year old male with primary medical history of TIA, COPD, respiratory distress who came in to the hospital with complaints of increasing shortness of breath. Patient states that about 2 days ago he felt that he is coming down with a cold and thought that he has pneumonia because he has increased cough, feverish, and chills. Reports lack of appetite and has been having diarrhea for 3 days. Patient states also that he recently had a fall while getting into the curb and was diagnosed with rib fractures. His cough has been progressing and he did not take anything to relieved his symptoms that he came to the hospital. COPD acute on chronic exacerbation Reviewed: Chest x-ray no acute disease. Tmax 100.8 at admission, no fevers since. No leukocytosis. - DC Levaquin 750mg IV with C. difficile and no further evidence of infection - IV Solu-Medrol 40 mg, taper to twice daily and changed to to by mouth steroids at DC - DuoNeb's QID scheduled, albuterol every 2 hours when necessary for SOB - O2 2 L nasal cannula, wean off keep O2 sat greater than 90% -Guaifenesin -Sputum culture pending Accelerated hypertension - BP is not well-controlled, but during better after starting antihypertensives. -Amlodipine 10 mg -Start lisinopril 20 mg, titrate dose as needed -Clonidine as needed Abdominal discomfort/Diarrhea x 1/C. difficile - still positive for C. difficile - Further stool cultures pending - Lactinex 3 times a day - Simethicone prn for bloating - Zantac - Start Flagyl 500 mg every 8 hours for 2 weeks after stopping other antibiotics Alcohol abuse - [facility] protocol - Monitor for withdrawal Tobacco abuse - Counseled on cessation - Nicotine patch Hyponatremia Sodium improved to 139 with IVF on repeat CMP -Resolved Elevated AST and ALT - likely from alcohol abuse -LFTs trending down Prophylaxis: SCDs. Zantac. Discharge Planning Case management consulted for assistance with outpatient follow-up, will need prescriptions. Discharge planning if outpatient follow-up arranged and blood pressure is better controlled. Attending Statement Continue Flagyl and supportive care. Add physical therapy. Carlos Krishnamurthy Sep 16, 2016 08:22 Joe Souza DO Sep 16, 2016 14:55
[2016-09-16] MEDS ORDERED: LISINOPRIL 10 MG TAB PO SCH (09:00)
[2016-09-16] MEDS: REMOVE OLD PATCH T-DERMAL SCH (09:00)
[2016-09-16] MEDS ORDERED: AMLO5 PO (09:38)
[2016-09-16] MEDS ORDERED: PRED20 PO (09:38)
[2016-09-16] MEDS ORDERED: FAMO20TA2 PO (09:38)
[2016-09-16] MEDS ORDERED: LACT PO (09:38)
[2016-09-16] MEDS ORDERED: ALBUAER3 INH (09:38)
[2016-09-16] MEDS ORDERED: METR-1 PO (09:38)
[2016-09-16] MEDS ORDERED: MUCI600T PO (09:38)
[2016-09-16] MEDS: NICOTINE 21 MG/24 HR PATCH T-DERMAL SCH (09:39)
[2016-09-16] MEDS: THIAMINE HCL 100 MG TAB PO SCH (09:41)
[2016-09-16] MEDS: LACTOBACILLUS ACIDOPHILUS TAB PO SCH ×3 (09:41→16:55)
[2016-09-16] MEDS: guaiFENesin E.R. 600 MG TAB PO SCH ×2 (09:41→21:28)
[2016-09-16] MEDS: amLODIPine BESYLATE 5 MG TAB PO SCH (09:41)
[2016-09-16] MEDS: FAMOTIDINE 20 MG TAB PO SCH ×2 (09:42→21:28)
[2016-09-16] MEDS: SODIUM CHLORIDE 0.9% FLUSH 10 ML FLUSH IV FLUSH SCH ×2 (09:43→21:27)
[2016-09-16] MEDS: metroNIDAZOLE 500 MG TAB PO SCH ×3 (09:43→21:28)
[2016-09-16] MEDS ORDERED: VANCOMYCIN INJ 1,000 MG in SODIUM CHLOR 0.9% 250 ML INJ 250 ML IV ONE (12:00)
--- NOTE | 2016-09-16 19:50 | PD.ID.CON ---
History of Present Illness Service ID Consult Requested By Carlos MURRAY Reason for Consult bacteremia and C.diff Primary Care Physician No Primary Care Physician Diagnoses: History of Present Illness 56 to heavy smoker presented with 4 days of severe diarrhea, abdominal pain and fever up to 102 as well as SOB and productive cough with greenish sputum He was tested + for C.diff His blood clx grawing gram positive org's one was ID'd as pleomorphic GPR CXR was negative He feels much better, had last BM this am and it was semi -solid Improved SOB and cough His CXR was negative for an infiltrate Review of Systems Constitutional: COMPLAINS OF: Fatigue, Fever, Chills Respiratory: COMPLAINS OF: Cough, Sputum production, Shortness of breath Gastrointestinal: COMPLAINS OF: Abdominal pain, Diarrhea Except as stated in HPI: all other systems reviewed are Neg Past Family Social History Allergies: Coded Allergies: Haldol (Verified Allergy, Unknown, 09/13/16) Past Medical History ETOH abuse tobaccoism h/o TIAs Past Surgical History appendectomy L knee repair Active Ordered Medications Medications where reviewed in EMR Antibiotics Include: levaquin IV vancomycin flagyl po Family History Non-Contributory. Social History + Tobacco. 1/2 ppd + daily ETOH bottle of whiskey No Illicit Drugs. Physical Exam Vital Signs Vital Signs Date Time Temp Pulse Resp B/P Pulse Ox O2 Delivery O2 Flow Rate FiO2 09/16/16 15:53 97.9 77 19 164/87 95 09/16/16 10:58 97.6 69 20 165/95 93 09/16/16 07:43 95 09/16/16 07:28 97.7 55 20 192/89 94 09/16/16 03:43 98.0 68 20 172/96 95 09/16/16 00:04 97.5 80 20 160/90 96 09/15/16 19:45 98 Physical Exam CONSTITUTIONAL/GENERAL: This is an adequately nourished patient, in no apparent distress. TUBES/LINES/DRAINS: SKIN: No jaundice, rashes, or lesions. Skin temperature appropriate. Not diaphoretic. HEAD: Atraumatic. Normocephalic. EYES: Pupils equal and round and reactive. Extraocular motions intact. No scleral icterus. No injection or drainage. Fundi not examined. ENT: Hearing grossly normal. Oral mucosae moist NECK: Trachea midline. Supple, nontender. CARDIOVASCULAR: Regular rate and rhythm without murmurs, gallops, or rubs. No JVD. Peripheral pulses symmetric. RESPIRATORY/CHEST: Symmetric, unlabored respirations. Clear to auscultation. Breath sounds equally diminished bilaterally. No wheezes, rales, or rhonchi. GASTROINTESTINAL: Abdomen soft, non-tender, nondistended. No hepato-splenomegaly , or palpable masses. No guarding. Bowel sounds present. GENITOURINARY: Without palpable bladder distension. MUSCULOSKELETAL: Extremities without clubbing, cyanosis, or edema. No joint tenderness or effusion noted. No calf tenderness. No mottling or clubbing. LYMPHATICS: No palpable cervical or supraclavicular adenopathy. NEUROLOGICAL: Awake and alert. Motor and sensory grossly within normal limits. Follows commands. Normal speech. Moves all extremities. PSYCHIATRIC: No obvious anxiety/depression. no apparent hallucinations or other psychotic thought process. Laboratory Date/Time Procedure Status Source Growth 09/16/16 12:40 Aerobic Blood Culture Received Blood Peripheral Pending 09/16/16 12:40 Anaerobic Blood Culture Received Blood Peripheral Pending 09/15/16 08:15 Gram Stain - Final Resulted Sputum Expectorated Sputum 09/15/16 08:15 Sputum Culture - Preliminary Resulted Sputum Expectorated Sputum HEAVY GROWTH NORMAL RESPIRATORY LINETTE... 09/15/16 08:15 Cryptosporidium Exam Received Stool Stool Pending 09/15/16 08:15 Giardia Antigen (DAMARI) Received Stool Stool Pending 09/15/16 08:15 - Final Complete Stool Stool 09/13/16 15:22 Influenza Types A,B Antigen (DAMARI) - Final Complete Nasal Aspirate NEGATIVE FOR FLU A AND B ANTIGEN.... 09/13/16 15:22 Aerobic Blood Culture - Preliminary Resulted Blood Peripheral 09/13/16 15:22 Anaerobic Blood Culture - Preliminary Resulted Blood Peripheral NO GROWTH IN 3 DAYS Result Diagram: 09/14/16 0516 09/14/16 0516 Imaging Last Impressions Chest X-Ray 09/13/16 1513 Signed Impressions: Service Date/Time: August 15:18 - CONCLUSION: No acute disease. Cayetano Shea Jr., MD Assessment and Plan Assessment and Plan C.diff - imprtoved clinical;ly on flagyl Gram + bacteremia ? significance COPD exacerbation, no e/o PNA cont oral flagy dc levaquine FU P blood clx Discussed Condition With Janis Torres MD Sep 16, 2016 19:50
[2016-09-17] VITALS: BP 142/96; PULSE 58; RESP 14; TEMP 97.8; O2SAT 97
[2016-09-17 04:00] VITALS: BP 150/70; PULSE 64; RESP 16; TEMP 97.9; O2SAT 99
[2016-09-17] MEDS: metroNIDAZOLE 500 MG TAB PO SCH ×3 (05:10→22:38)
[2016-09-17 08:00] VITALS: BP_SYST 150; BP_SYST 179; BP_DIAS 80; BP_DIAS 95; PULSE 60; RESP 20; TEMP 97.6; O2SAT 97
[2016-09-17] MEDS: RESP: ALBUTEROL 2.5 MG/IPRATROPIUM 0.5 MG NEB (SCH) INH ×3 (08:32→21:04)
[2016-09-17] MEDS ORDERED: LISINOPRIL 20 MG TAB PO SCH (09:00)
[2016-09-17] MEDS: THIAMINE HCL 100 MG TAB PO SCH (09:00)
[2016-09-17] MEDS: REMOVE OLD PATCH T-DERMAL SCH (09:00)
[2016-09-17] MEDS: FAMOTIDINE 20 MG TAB PO SCH ×2 (10:07→22:38)
[2016-09-17] MEDS: amLODIPine BESYLATE 5 MG TAB PO SCH (10:07)
[2016-09-17] MEDS: LACTOBACILLUS ACIDOPHILUS TAB PO SCH ×3 (10:07→18:29)
[2016-09-17] MEDS: methylPREDNISolone SOD SUCC 40 MG/1 ML VIAL IV SCH (10:08)
[2016-09-17] MEDS: NICOTINE 21 MG/24 HR PATCH T-DERMAL SCH (10:09)
[2016-09-17] MEDS: SODIUM CHLORIDE 0.9% FLUSH 10 ML FLUSH IV FLUSH SCH ×2 (10:09→21:00)
[2016-09-17] MEDS: guaiFENesin E.R. 600 MG TAB PO SCH ×2 (10:09→22:38)
[2016-09-17] MEDS ORDERED: LISINOPRIL 20 MG TAB PO ONE (11:15)
[2016-09-17 12:00] VITALS: BP_SYST 170; BP_SYST 196; BP_DIAS 103; BP_DIAS 90; PULSE 59; RESP 18; TEMP 97.9; O2SAT 97
--- NOTE | 2016-09-17 12:51 | HHI.PR ---
Subjective Remarks Follow-up for COPD, C. difficile, hypertension. The patient reports feeling much better today. His bowel movements are improving, had 2 loose stools so far today, no recent diarrhea. Denies any abdominal pain. Tolerating oral intake. He also reports his breathing is much improved. Denies any wheezing. Occasional cough with minimal mucus production. No fevers/chills. Denies shortness of breath. He has been able to ambulate to the restroom without difficulty. He voices concern about being able to fill any medications he needs at discharge, states he has no money. Objective Vitals Vital Signs Date Time Temp Pulse Resp B/P Pulse Ox O2 Delivery O2 Flow Rate FiO2 09/17/16 12:00 97.9 59 18 196/103 97 170/90 09/17/16 08:00 97.6 60 20 179/95 97 150/80 09/17/16 04:00 97.9 64 16 150/70 99 09/17/16 04:00 Room Air 09/17/16 00:00 Room Air 09/17/16 00:00 97.8 58 14 142/96 97 09/16/16 21:46 94 21 09/16/16 20:00 98.0 68 16 140/70 96 09/16/16 20:00 Room Air 09/16/16 15:53 97.9 77 19 164/87 95 I/O 09/16/16 09/16/16 09/16/16 09/17/16 09/17/16 09/17/16 07:00 15:00 23:00 07:00 15:00 23:00 Intake Total 120 ml 238 ml 480 ml 100 ml Balance 120 ml 238 ml 480 ml 100 ml Intake Oral 120 ml 480 ml 100 ml IV Total 238 ml # Voids 1 0 2 # Bowel Movements 0 0 Result Diagram: 09/14/16 0516 09/14/16 0516 Imaging Last Impressions Chest X-Ray 09/13/16 1513 Signed Impressions: Service Date/Time: August 15:18 - CONCLUSION: No acute disease. Cayetano Shea Jr., MD Objective Remarks GENERAL: Well-nourished, well-developed patient in [employer]. SKIN: Warm and dry. No rash. HEENT: Normocephalic. Atraumatic.Pupils equal and round. No scleral icterus. No injection or drainage. Mucous membranes pink and moist. NECK: Supple. Trachea midline. CARDIOVASCULAR: Regular rate and rhythm. S1, S2 noted. No murmur appreciated. RESPIRATORY: No accessory muscle use. Clear to auscultation. Breath sounds equal bilaterally. GASTROINTESTINAL: Abdomen soft, non-tender, nondistended. Normoactive bowel sounds x4. MUSCULOSKELETAL: No obvious deformities. Extremities without clubbing, cyanosis , or edema. NEUROLOGICAL: Awake and alert. No obvious cranial nerve deficits. Motor grossly within normal limits. Normal speech. PSYCHIATRIC: Appropriate mood and affect; insight and judgment normal. Medications and IVs Current Medications Medications (Trade) Dose Ordered Sig/Jeramy Route Start Time Stop Time Status Last Admin (Romazicon Inj) 0.2 mg Q1M PRN IV PUSH 09/13/16 18:30 (Ativan) 1 mg Q4H PRN PO 09/13/16 18:30 09/16/16 09:46 (Ativan Inj) 1 mg Q4H PRN IV PUSH 09/13/16 18:30 (Ativan) 2 mg Q2H PRN PO 09/13/16 18:30 (Ativan Inj) 2 mg Q2H PRN IV PUSH 09/13/16 18:30 (Ativan Inj) 2 mg Q1H PRN IV PUSH 09/13/16 18:30 (Ativan Inj) 2 mg Q15M PRN IV PUSH 09/13/16 18:30 (Vitamin B1) 100 mg DAILY PO 09/13/16 18:30 09/17/16 09:00 (NS Flush) 2 ml UNSCH PRN IV FLUSH 09/13/16 18:30 (NS Flush) 2 ml BID IV FLUSH 09/13/16 21:00 09/17/16 10:09 (Tylenol) 650 mg Q4H PRN PO 09/13/16 18:30 (Zofran Inj) 4 mg Q6H PRN IVP 09/13/16 18:30 (Milk Of Magnesia Liq) 30 ml Q12H PRN PO 09/13/16 18:30 (Narcan Inj) 0.4 mg UNSCH PRN IV 09/13/16 18:30 (Phazyme Chew) 125 mg Q8HR PRN PO 09/13/16 18:30 (Habitrol 21 Mg Patch.24 Hr) 1 patch DAILY T-DERMAL 09/13/16 18:30 09/17/16 10:09 Miscellaneous Information 1 DAILY T-DERMAL 09/14/16 09:00 09/17/16 09:00 (Mucinex Er) 600 mg BID PO 09/14/16 13:15 09/17/16 10:09 (Catapres) 0.1 mg Q6H PRN PO 09/14/16 13:15 09/16/16 06:01 (Norvasc) 10 mg DAILY PO 09/16/16 09:00 09/17/16 10:07 (Flagyl) 500 mg Q8HR PO 09/16/16 07:15 09/17/16 05:10 (SoluMEDROL INJ) 40 mg Q12HR IV 09/16/16 18:00 09/17/16 10:08 (Pepcid) 20 mg Q12HR PO 09/16/16 09:00 09/17/16 10:07 (Lactinex) 1 tab TID PO 09/16/16 09:00 09/17/16 12:17 (Prinivil) 40 mg DAILY PO 09/18/16 09:00 A/P Problem List: (1) Acute exacerbation of chronic obstructive pulmonary disease (COPD) ICD Code: J44.1 Status: Acute (2) Bronchitis ICD Code: J40 Status: Acute (3) Tobacco abuse ICD Code: Z72.0 Status: Chronic (4) Alcohol abuse ICD Code: F10.10 Status: Chronic Assessment and Plan 56 year old male with PMH of TIA, COPD, presents with increasing shortness of breath. Patient states that about 2 days ago he felt that he is coming down with a cold and thought that he has pneumonia because he has increased cough, feverish, and chills. Reports lack of appetite and has been having diarrhea for 3 days. Patient states also that he recently had a fall while getting into the curb and was diagnosed with rib fractures. His cough has been progressing and he did not take anything to relieved his symptoms that he came to the hospital. Acute on Chronic COPD exacerbation Reviewed: Chest x-ray no acute disease. Tmax 100.8 at admission, no fevers since. No leukocytosis. - DC Levaquin 750mg IV with C. difficile and no further evidence of infection - IV Solu-Medrol 40 mg, tapered to twice daily, now changed Prednisone with taper at discharge. - DuoNeb's QID scheduled, albuterol every 2 hours prn SOB - O2 2 L nasal cannula, wean off keep O2 sat greater than 90%, now stable on room air -Guaifenesin bid -Sputum culture with normal respiratory clarissa Accelerated hypertension - BP is not well-controlled, but during better after starting antihypertensives. -Amlodipine 10 mg -Started lisinopril 20 mg, increased to 40mg today -Clonidine as needed -Monitor BP, adjust antihypertensives as needed Abdominal discomfort/Diarrhea x 1/C. difficile - still positive for C. difficile - Further stool cultures pending - Lactinex 3 times a day - Simethicone prn for bloating - Zantac - Start Flagyl 500 mg every 8 hours for 2 weeks after stopping other antibiotics Positive Blood Cultures: 1/ blood cultures upon admission positive for pleomorphic gram positive rods -repeat blood cultures with no growth in 1 day -consulted infectious disease, appreciate recommendations Alcohol abuse - [facility] protocol - Monitor for withdrawal Tobacco abuse - Counseled on cessation - Nicotine patch Hyponatremia Sodium improved to 139 with IVF on repeat CMP -Resolved Elevated AST and ALT - likely from alcohol abuse -LFTs trending down Prophylaxis: SCDs. Zantac. Written by Claudia Bonilla, acting as scribe for Dr. Souza on 09/17/16 at 11:15. Discharge Planning Case management consulted for assistance with outpatient follow-up, will need prescriptions. Discharge planning if outpatient follow-up arranged and blood pressure is better controlled. Claudia Bonilla PA-C Sep 17, 2016 12:51 pm
[2016-09-17 16:00] VITALS: BP 130/77; PULSE 70; RESP 18; TEMP 97.7; O2SAT 97
[2016-09-17 20:00] VITALS: BP 137/71; PULSE 79; RESP 20; TEMP 97.9; O2SAT 97
[2016-09-17] MEDS ORDERED: predniSONE 20 MG TAB PO SCH (21:00)
[2016-09-18] VITALS: BP 130/80; PULSE 74; RESP 18; TEMP 98.1; O2SAT 98
[2016-09-18 04:00] VITALS: BP 152/89; PULSE 62; RESP 18; TEMP 98; O2SAT 99
[2016-09-18] MEDS: metroNIDAZOLE 500 MG TAB PO SCH ×3 (06:07→22:12)
[2016-09-18 08:00] VITALS: BP 152/93; PULSE 57; RESP 18; TEMP 97.8; O2SAT 99
[2016-09-18] MEDS: RESP: ALBUTEROL 2.5 MG/IPRATROPIUM 0.5 MG NEB (SCH) INH (08:20)
[2016-09-18] MEDS: LACTOBACILLUS ACIDOPHILUS TAB PO SCH ×3 (08:43→17:20)
[2016-09-18] MEDS: guaiFENesin E.R. 600 MG TAB PO SCH ×2 (08:43→22:12)
[2016-09-18] MEDS: FAMOTIDINE 20 MG TAB PO SCH ×2 (08:43→22:12)
[2016-09-18] MEDS: THIAMINE HCL 100 MG TAB PO SCH (08:43)
[2016-09-18] MEDS: amLODIPine BESYLATE 5 MG TAB PO SCH (08:43)
[2016-09-18] MEDS: LISINOPRIL 20 MG TAB PO SCH (08:44)
[2016-09-18] MEDS: SODIUM CHLORIDE 0.9% FLUSH 10 ML FLUSH IV FLUSH SCH ×2 (08:44→21:00)
[2016-09-18] MEDS: NICOTINE 21 MG/24 HR PATCH T-DERMAL SCH (08:44)
[2016-09-18] MEDS: REMOVE OLD PATCH T-DERMAL SCH (08:44)
[2016-09-18] MEDS ORDERED: PRED20 PO (08:58)
[2016-09-18] MEDS ORDERED: LISI-515 PO (08:58)
[2016-09-18] MEDS ORDERED: METR-1 PO (08:58)
[2016-09-18] MEDS ORDERED: NICO21DI2 T-DERMAL (08:58)
--- NOTE | 2016-09-18 09:03 | HHI.DCPOC ---
Discharge Care Plan Diagnosis: (1) Acute exacerbation of chronic obstructive pulmonary disease (COPD) (2) Tobacco abuse (3) Alcohol abuse (4) C. difficile colitis Goals to Promote Your Health * To prevent worsening of your condition and complications * To maintain your health at the optimal level Directions to Meet Your Goals Take your medications as prescribed Follow your dietary instruction Follow activity as directed Keep your appointments as scheduled Take your immunizations and boosters as scheduled If your symptoms worsen call your PCP, if no PCP go to Urgent Care Center or Emergency Room Smoking is Dangerous to Your Health. Avoid second hand smoke Call the 24-hour hour crisis hotline for domestic abuse at Joe Souza DO Sep 18, 2016 09:03
--- NOTE | 2016-09-18 10:09 | HHI.DS ---
Discharge Summary Admission Date Sep 16, 2016 at 10:26 Discharge Date: Sep 18, 2016 Admitting Diagnosis respiratory distress, acute COPD exacerbation, bronchitis (1) Acute exacerbation of chronic obstructive pulmonary disease (COPD) ICD Code: J44.1 (2) Bronchitis ICD Code: J40 (3) Tobacco abuse ICD Code: Z72.0 (4) Alcohol abuse ICD Code: F10.10 (5) C. difficile colitis ICD Code: A04.7 Diagnosis: Principal Procedures None. Brief History - From Admission Patient is a 56 year old male with primary medical history of TIA, COPD, respiratory distress who came in to the hospital with complaints of increasing shortness of breath. Patient states that about 2 days ago he felt that he is coming down with a cold and thought that he has pneumonia because he has increased cough, feverish, and chills. Reports lack of appetite and has been having diarrhea for 3 days. Patient states also that he recently had a fall while getting into the curb and was diagnosed with rib fractures. His cough has been progressing and he did not take anything to relieved his symptoms that he came to the hospital. Patient also states that he's been having diarrhea 3 days. Complaints of mild abdominal pain and lower abdominal quadrant area. Reports mild cramping. Denies any nausea, vomiting. Denies palpitations, headaches, dizziness. In the ED, patient was given Zosyn, Solu-Medrol and nebulization treatment. Walk test was done. Patient has increasing shortness of breath with 10-20 feet of ambulation without oxygen. CBC/BMP: 09/14/16 0516 09/14/16 0516 Imaging Last Impressions Chest X-Ray 09/13/16 1513 Signed Impressions: Service Date/Time: August 15:18 - CONCLUSION: No acute disease. Cayetano Shea Jr., MD PE at Discharge GENERAL: Well-nourished, well-developed patient in [facility]. SKIN: Warm and dry. No rash. HEENT: Normocephalic. Atraumatic.Pupils equal and round. No scleral icterus. No injection or drainage. Mucous membranes pink and moist. NECK: Supple. Trachea midline. CARDIOVASCULAR: Regular rate and rhythm. S1, S2 noted. No murmur appreciated. RESPIRATORY: No accessory muscle use. Clear to auscultation. Breath sounds equal bilaterally. GASTROINTESTINAL: Abdomen soft, mild RUQ abdominal pain, nondistended. Normoactive bowel sounds x4. MUSCULOSKELETAL: No obvious deformities. Extremities without clubbing, cyanosis , or edema. NEUROLOGICAL: Awake and alert. No obvious cranial nerve deficits. Motor grossly within normal limits. Normal speech. PSYCHIATRIC: Appropriate mood and affect; insight and judgment normal. Pt update on day of discharge The patient complained of some right upper quadrant abdominal pain. Otherwise he says his breathing is excellent. He says he is given a quit smoking and drinking. Discussed with case management. Hospital Course C diff The pt was positive for C diff. He was started on Flagyl and lactobacillus. ID was consulted. He will complete 14 days of Flagyl. COPD exacerbation Chest x-ray no acute disease. No leukocytosis. He was started on Levaquin which has since been discontinued. He was started on IV Solu-Medrol, now changed to a prednisone taper. He received DuoNeb's QID scheduled, albuterol every 2 hours prn. He received guaifenesin bid. Sputum culture with normal respiratory clarissa. He will be discharged with albuterol and prednisone. He will quit smoking and be prescribed nicotine patches. He will follow up with his PCP. Accelerated hypertension He was started on amlodipine 10 mg daily and lisinopril 40 mg daily with good results. He received clonidine as needed. Positive blood cultures 1/4 blood cultures upon admission positive for pleomorphic gram positive rods. Repeat blood cultures with no growth. We consulted infectious disease. The pt's repeat blood cultures will be monitored and he will follow up with his PCP. Alcohol abuse He was placed on CIWA protocol. He said he will quit drinking. Elevated AST and ALT/ RUQ abdominal pain LFTs elevated 4/4. RUQ US with fatty infiltration. Hepatitis panel + for HCV. He will continue Pepcid. He received alcohol cessation instruction. Trend LFTs. Outpt follow-up with GI. Pain control as needed. Pt Condition on Discharge: Good Discharge Disposition: Discharge Home Discharge Time: > 30 minutes Discharge Instructions DIET: Follow Instructions for: Heart Healthy Diet Activities you can perform: Regular-No Restrictions Follow up Referrals: PCP Follow-up - 1 Week with Delores Draper MD New Medications: Albuterol 8.5 GM Inh (Proair Hfa 8.5 GM Inh) 90 Mcg/Act Aer 2 PUFF INH Q4-6H 108 mcg/actuation PRN SHORTNESS OF BREATH #1 Ref 0 INHALER Prednisone (Prednisone) 20 Mg Tab 20 MG PO DAILY copd #3 Ref 0 TAB Amlodipine (Norvasc) 5 Mg Tab 10 MG PO DAILY Blood Pressure Management #30 TAB Famotidine (Famotidine) 20 Mg Tab 20 MG PO Q12HR Reflux #30 TAB Guaifenesin ER 12 HR (Mucinex ER 12 HR) 600 Mg Alesha 600 MG PO BID Cough #10 TAB Lactobacillus Acidophilus (Acidophilus/l-Sporogenes) 1 Tab Tab 1 TAB PO TID Diarrhea #60 TAB Lisinopril (Lisinopril) 20 Mg Tab 40 MG PO DAILY Blood Pressure Management #60 TAB Metronidazole (Flagyl) 500 Mg Tab 500 MG PO Q8HR Infection #33 TAB Nicotine Patch (Nicotine Patch) 21 Mg/24 Hr Patch 1 PATCH T-DERMAL DAILY smoking #30 PATCH Joe Souza DO Sep 18, 2016 10:09 Discharge Instructions DIET: Follow Instructions for: Heart Healthy Diet Activities you can perform: Regular-No Restrictions Follow up Referrals: PCP Follow-up - 1 Week with Delores Draper MD New Medications: Albuterol 8.5 GM Inh (Proair Hfa 8.5 GM Inh) 90 Mcg/Act Aer 2 PUFF INH Q4-6H 108 mcg/actuation PRN SHORTNESS OF BREATH #1 Ref 0 INHALER Prednisone (Prednisone) 20 Mg Tab 20 MG PO DAILY copd #3 Ref 0 TAB Amlodipine (Norvasc) 5 Mg Tab 10 MG PO DAILY Blood Pressure Management #30 TAB Famotidine (Famotidine) 20 Mg Tab 20 MG PO Q12HR Reflux #30 TAB Guaifenesin ER 12 HR (Mucinex ER 12 HR) 600 Mg Alesha 600 MG PO BID Cough #10 TAB Lactobacillus Acidophilus (Acidophilus/l-Sporogenes) 1 Tab Tab 1 TAB PO TID Diarrhea #60 TAB Lisinopril (Lisinopril) 20 Mg Tab 40 MG PO DAILY Blood Pressure Management #60 TAB Metronidazole (Flagyl) 500 Mg Tab 500 MG PO Q8HR Infection #33 TAB Nicotine Patch (Nicotine Patch) 21 Mg/24 Hr Patch 1 PATCH T-DERMAL DAILY smoking #30 PATCH Joe Souza DO Sep 18, 2016 10:09
[2016-09-18 10:17] LABS: ANION GAP 5 MEQ/L (5-15); BICARBONATE 32.7 MEQ/L (21.0-32.0); BLOOD UREA NITROGEN 21 MG/DL (7-18); CHLORIDE 102 MEQ/L (98-107); MAGNESIUM 2.2 MG/DL (1.5-2.5); POTASSIUM 4.2 MEQ/L (3.5-5.1); SODIUM (NA) 140 MEQ/L (136-145)
[2016-09-18] MEDS: predniSONE 10 MG TAB PO SCH ×2 (10:17→22:12)
[2016-09-18 10:19] LABS: ALKALINE PHOSPHATASE 81 U/L (45-117); ALT (GPT) 213 U/L (12-78); AST (GOT) 137 U/L (15-37); GLOMERULAR FILTRATION RATE 94 ML/MIN (>89); TOTAL BILIRUBIN ADULT 0.5 MG/DL (0.2-1.0)
--- NOTE | 2016-09-18 11:43 | RADRPT ---
EXAM DATE/TIME: 09/18/2016 10:56 [facility] COMPARISON: No previous studies available for comparison. INDICATIONS : Right upper quadrant pain. MEDICAL HISTORY : Chronic obstructive pulmonary disease. TIA. C-diff. Right upper quadrant pain. SURGICAL HISTORY : Appendectomy. ENCOUNTER: Initial ACUITY: 1 week PAIN SCORE: 4/10 LOCATION: Right upper quadrant MEASUREMENTS: LIVER: 17.1 cm length COMMON DUCT: 5 mm RIGHT KIDNEY: 12.0 x 5.2 x 6.0 cm FINDINGS: LIVER: There is increased echogenicity of the liver suggesting fatty infiltration. No mass lesion is identif ied. The portal vein is patent. COMMON DUCT: No intraluminal mass or stone visualized. GALLBLADDER: No stones are seen. The gallbladder is decompressed. PANCREAS: The visualized portions are within normal limits. RIGHT KIDNEY: No evidence of hydronephrosis, stone, or mass. CONCLUSION: 1. Possible fatty infiltration of the liver. 2. The gallbladder is contracted. 3. Common duct is within normal limits. Daljit Teran MD on September 18, 2016 at 11:38 Board Certified Radiologist. This report was verified electronically.
[2016-09-18 12:00] VITALS: BP 130/76; PULSE 75; RESP 18; TEMP 98; O2SAT 97
[2016-09-18 16:00] VITALS: BP 137/86; PULSE 72; RESP 18; TEMP 98.3; O2SAT 97
--- NOTE | 2016-09-18 18:14 | HHI.PR ---
Subjective Remarks The patient complained of right upper quadrant abdominal pain. He is not sure if it is associated with food. Otherwise he said his breathing was improved upon. He said he will quit drinking and smoking. Discussed with nursing. Objective Vitals Vital Signs Date Time Temp Pulse Resp B/P Pulse Ox O2 Delivery O2 Flow Rate FiO2 09/18/16 12:00 98.0 75 18 130/76 97 09/18/16 10:21 Room Air 21 09/18/16 08:00 97.8 57 18 152/93 99 09/18/16 04:00 98.0 62 18 152/89 99 09/18/16 04:00 Room Air 09/18/16 00:00 98.1 74 18 130/80 98 09/18/16 00:00 Room Air 09/17/16 20:00 97.9 79 20 137/71 97 09/17/16 20:00 Room Air I/O 09/17/16 09/17/16 09/17/16 09/18/16 09/18/16 09/18/16 07:00 15:00 23:00 07:00 15:00 23:00 Intake Total 100 ml 0 ml 1440 ml 240 ml Balance 100 ml 0 ml 1440 ml 240 ml Intake Oral 100 ml 1440 ml 240 ml IV Total 0 ml # Voids 2 3 1 # Bowel Movements 0 2 0 Result Diagram: 09/14/16 0516 09/18/16 0945 Imaging Last Impressions Gall Bladder Ultrasound 09/18/16 0000 Signed Impressions: Service Date/Time: Sunday, September 18, 2016 10:56 - CONCLUSION: 1. Possible fatty infiltration of the liver. 2. The gallbladder is contracted. 3. Common duct is within normal limits. Daljit Teran MD Chest X-Ray 09/13/16 1513 Signed Impressions: Service Date/Time: August 15:18 - CONCLUSION: No acute disease. Cayetano Shea Jr., MD Objective Remarks GENERAL: Well-nourished, well-developed patient in NAD. SKIN: Warm and dry. No rash. HEENT: Normocephalic. Atraumatic.Pupils equal and round. No scleral icterus. No injection or drainage. Mucous membranes pink and moist. NECK: Supple. Trachea midline. CARDIOVASCULAR: Regular rate and rhythm. S1, S2 noted. No murmur appreciated. RESPIRATORY: No accessory muscle use. Clear to auscultation. Breath sounds equal bilaterally. GASTROINTESTINAL: Abdomen soft, mild RUQ abdominal pain, nondistended. Normoactive bowel sounds x4. MUSCULOSKELETAL: No obvious deformities. Extremities without clubbing, cyanosis , or edema. NEUROLOGICAL: Awake and alert. No obvious cranial nerve deficits. Motor grossly within normal limits. Normal speech. PSYCHIATRIC: Appropriate mood and affect; insight and judgment normal. Procedures None. Medications and IVs Current Medications Medications (Trade) Dose Ordered Sig/Jeramy Route Start Time Stop Time Status Last Admin (Romazicon Inj) 0.2 mg Q1M PRN IV PUSH 09/13/16 18:30 (Ativan) 1 mg Q4H PRN PO 09/13/16 18:30 09/16/16 09:46 (Ativan Inj) 1 mg Q4H PRN IV PUSH 09/13/16 18:30 (Ativan) 2 mg Q2H PRN PO 09/13/16 18:30 (Ativan Inj) 2 mg Q2H PRN IV PUSH 09/13/16 18:30 (Ativan Inj) 2 mg Q1H PRN IV PUSH 09/13/16 18:30 (Ativan Inj) 2 mg Q15M PRN IV PUSH 09/13/16 18:30 (Vitamin B1) 100 mg DAILY PO 09/13/16 18:30 09/18/16 08:43 (NS Flush) 2 ml UNSCH PRN IV FLUSH 09/13/16 18:30 (NS Flush) 2 ml BID IV FLUSH 09/13/16 21:00 09/18/16 08:44 (Tylenol) 650 mg Q4H PRN PO 09/13/16 18:30 (Zofran Inj) 4 mg Q6H PRN IVP 09/13/16 18:30 (Milk Of Magnesia Liq) 30 ml Q12H PRN PO 09/13/16 18:30 (Narcan Inj) 0.4 mg UNSCH PRN IV 09/13/16 18:30 (Phazyme Chew) 125 mg Q8HR PRN PO 09/13/16 18:30 (Habitrol 21 Mg Patch.24 Hr) 1 patch DAILY T-DERMAL 09/13/16 18:30 09/18/16 08:44 Miscellaneous Information 1 DAILY T-DERMAL 09/14/16 09:00 09/18/16 08:44 (Mucinex Er) 600 mg BID PO 09/14/16 13:15 09/18/16 08:43 (Catapres) 0.1 mg Q6H PRN PO 09/14/16 13:15 09/16/16 06:01 (Norvasc) 10 mg DAILY PO 09/16/16 09:00 09/18/16 08:43 (Flagyl) 500 mg Q8HR PO 09/16/16 07:15 09/18/16 13:24 (Pepcid) 20 mg Q12HR PO 09/16/16 09:00 09/18/16 08:43 (Lactinex) 1 tab TID PO 09/16/16 09:00 09/18/16 17:20 (Prinivil) 40 mg DAILY PO 09/18/16 09:00 09/18/16 08:44 (Deltasone) 20 mg BID PO 09/18/16 09:43 09/18/16 10:17 A/P Problem List: (1) Acute exacerbation of chronic obstructive pulmonary disease (COPD) ICD Code: J44.1 Status: Acute (2) Bronchitis ICD Code: J40 Status: Acute (3) Tobacco abuse ICD Code: Z72.0 Status: Chronic (4) Alcohol abuse ICD Code: F10.10 Status: Chronic (5) C. difficile colitis ICD Code: A04.7 Status: Acute Assessment and Plan 56 year old male with PMH of TIA, COPD, presents with increasing shortness of breath. Patient states that about 2 days ago he felt that he is coming down with a cold and thought that he has pneumonia because he has increased cough, feverish, and chills. Reports lack of appetite and has been having diarrhea for 3 days. Patient states also that he recently had a fall while getting into the curb and was diagnosed with rib fractures. His cough has been progressing and he did not take anything to relieved his symptoms that he came to the hospital. Acute on Chronic COPD exacerbation Reviewed: Chest x-ray no acute disease. Tmax 100.8 at admission, no fevers since. No leukocytosis. - DC Levaquin 750mg IV with C. difficile and no further evidence of infection - IV Solu-Medrol 40 mg, tapered to twice daily, now changed Prednisone with taper at discharge. - DuoNeb's QID scheduled, albuterol every 2 hours prn SOB - O2 2 L nasal cannula, wean off keep O2 sat greater than 90%, now stable on room air -Guaifenesin bid -Sputum culture with normal respiratory clarissa Accelerated hypertension - BP is not well-controlled, but during better after starting antihypertensives. -Amlodipine 10 mg -Started lisinopril 20 mg, increased to 40mg -Clonidine as needed -Monitor BP, adjust antihypertensives as needed Abdominal discomfort/Diarrhea x 1/C. difficile - still positive for C. difficile - Further stool cultures pending - Lactinex 3 times a day - Simethicone prn for bloating - Zantac - Start Flagyl 500 mg every 8 hours for 2 weeks Positive Blood Cultures: 1/4 blood cultures upon admission positive for pleomorphic gram positive rods -repeat blood cultures with no growth -consulted infectious disease, appreciate recommendations Alcohol abuse - [facility] protocol - Monitor for withdrawal Tobacco abuse - Counseled on cessation - Nicotine patch Hyponatremia Sodium improved to 139 with IVF on repeat CMP -Resolved RUQ abdominal pain Pt complained of abdominal pain 4/4. LFTs were elevated compared to previous values. RUQ US with ? fatty infiltration, no acute process. Hep profile + for HCV. - trend LFTs. - pain control as needed. - outpt follow-up with GI. Prophylaxis: SCDs. Zantac. Discharge Planning Would d/c home in AM if LFTs are improved or pain has improved with GI follow- up. Joe Souza DO Sep 18, 2016 18:14
[2016-09-18 18:52] LABS: ALKALINE PHOSPHATASE 86 U/L (45-117); ALT (GPT) 231 U/L (12-78); ANION GAP 7 MEQ/L (5-15); AST (GOT) 136 U/L (15-37); BICARBONATE 30.2 MEQ/L (21.0-32.0); BLOOD UREA NITROGEN 19 MG/DL (7-18); CHLORIDE 102 MEQ/L (98-107); GLOMERULAR FILTRATION RATE 107 ML/MIN (>89); POTASSIUM 4.3 MEQ/L (3.5-5.1); SODIUM (NA) 139 MEQ/L (136-145); TOTAL BILIRUBIN ADULT 0.3 MG/DL (0.2-1.0)
[2016-09-18 20:00] VITALS: BP_SYST 124; PULSE 79; RESP 18; TEMP 98.3; O2SAT 97
[2016-09-19] VITALS: BP 116/70; PULSE 54; RESP 18; TEMP 97.9; O2SAT 96
[2016-09-19 04:00] VITALS: BP 110/73; PULSE 98; RESP 18; TEMP 98.1; O2SAT 96
[2016-09-19] MEDS: metroNIDAZOLE 500 MG TAB PO SCH ×3 (06:38→21:08)
[2016-09-19 08:00] VITALS: BP 133/81; PULSE 68; RESP 20; TEMP 97.8; O2SAT 98
[2016-09-19] MEDS: predniSONE 10 MG TAB PO SCH ×2 (08:10→20:45)
[2016-09-19] MEDS: guaiFENesin E.R. 600 MG TAB PO SCH ×2 (08:10→20:45)
[2016-09-19] MEDS: amLODIPine BESYLATE 5 MG TAB PO SCH (08:10)
[2016-09-19] MEDS: SODIUM CHLORIDE 0.9% FLUSH 10 ML FLUSH IV FLUSH SCH ×2 (08:11→20:46)
[2016-09-19] MEDS: FAMOTIDINE 20 MG TAB PO SCH ×2 (08:11→20:45)
[2016-09-19] MEDS: LACTOBACILLUS ACIDOPHILUS TAB PO SCH ×3 (08:11→17:21)
[2016-09-19] MEDS: REMOVE OLD PATCH T-DERMAL SCH (08:11)
[2016-09-19] MEDS: THIAMINE HCL 100 MG TAB PO SCH (08:11)
[2016-09-19] MEDS: LISINOPRIL 20 MG TAB PO SCH (08:11)
[2016-09-19] MEDS: NICOTINE 21 MG/24 HR PATCH T-DERMAL SCH (08:11)
[2016-09-19 08:18] LABS: ALKALINE PHOSPHATASE 80 U/L (45-117); ALT (GPT) 234 U/L (12-78); ANION GAP 6 MEQ/L (5-15); AST (GOT) 128 U/L (15-37); BICARBONATE 31.7 MEQ/L (21.0-32.0); BLOOD UREA NITROGEN 21 MG/DL (7-18); CHLORIDE 102 MEQ/L (98-107); GLOMERULAR FILTRATION RATE 104 ML/MIN (>89); POTASSIUM 4.9 MEQ/L (3.5-5.1); SODIUM (NA) 140 MEQ/L (136-145); TOTAL BILIRUBIN ADULT 0.5 MG/DL (0.2-1.0)
--- NOTE | 2016-09-19 11:58 | PD.CONS ---
HPI History of Present Illness This is a 56 year old male who came to the emergency room for evaluation of shortness of breath, generalized weakness, and diarrhea. He reports that his symptoms began about 3-4 days prior to his hospitalization. He is being followed by the medical service and was started on steroids and nebulizer treatments for his COPD exacerbation. He was also noted to have C. difficile positive stool, negative for C. difficile toxin EPID 027. This is his first episode of C. difficile and he was started on Flagyl 500 mg by mouth every 8 hours. Patient reports prior to this admission he was treated with antibiotics for cellulitis to the right thumb. She states that since she's been in the hospital his diarrhea has improved, as well as his breathing. He is now only having 2-3 softly formed stools per day with no blood or mucus. He is not having any nausea, vomiting, and abdominal pain, melena, or hematochezia. Of note he was also noted to have elevated liver function test on admission with total bilirubin 1.0, AST 65, ALT 108, alkaline phosphatase 101. These have gradually trended up and are currently total bilirubin 0.5, AST 128, ALT 234, alkaline phosphatase 80. Denies any known history of liver disease or hepatitis. He does drink a pint of whiskey daily. Hepatitis profile was done and he has antibodies for hepatitis C. He denies ever being told that he had hepatitis in the past. There is no family history of liver disease. (Huong Richard) PFSH Past Medical History COPD TIA Past Surgical History Left knee surgery Appendectomy (Huong Richard) Coded Allergies: Haldol (Verified Allergy, Unknown, 09/13/16) Medications Allergies Coded Allergies Type Severity Reaction Last Updated Verified Haldol Allergy Unknown 09/13/16 Yes Active Scripts Medications Dose Route/Sig Days Date Category Dose Instructions Nicotine Patch (Nicotine) 21 Mg/24 Hr Patch 1 Patch T-DERMAL DAILY 09/18/16 Rx Lisinopril 20 Mg Tab 40 Mg PO DAILY 09/18/16 Rx Prednisone 20 Mg Tab 20 Mg PO DAILY 09/18/16 Rx Flagyl (Metronidazole) 500 Mg Tab 500 Mg PO Q8HR 09/18/16 Rx Proair Hfa 8.5 GM Inh (Albuterol Sulfate) 90 Mcg/Act Aer 2 Puff INH Q4-6H PRN 09/16/16 Rx 108 mcg/actuation Acidophilus/l-Sporogenes (Lactobacillus Acidophilus) 1 Tab Tab 1 Tab PO TID 09/16/16 Rx Mucinex ER 12 HR (Guaifenesin) 600 Mg Alesha 600 Mg PO BID 09/16/16 Rx Famotidine 20 Mg Tab 20 Mg PO Q12HR 09/16/16 Rx Norvasc (Amlodipine Besylate) 5 Mg Tab 10 Mg PO DAILY 09/16/16 Rx Family History He reports that he does not know his family history Social History Alcohol use whiskey one point daily Current smoker half pack a day 47 years Denies illicit drug use (Huong Richard) Review of Systems Constitutional: COMPLAINS OF: Diaphoretic episodes, Fatigue, Chills, DENIES: Fever, Weight loss Respiratory: COMPLAINS OF: Cough, Shortness of breath Cardiovascular: DENIES: Chest pain Gastrointestinal: COMPLAINS OF: Diarrhea, DENIES: Abdominal pain, Black stools , Bloody stools, Constipation, Nausea, Vomiting, Swelling of Abdomen, Heartburn , Hematemesis Integumentary: DENIES: Rash Hematologic/lymphatic: DENIES: Bruising Neurologic: DENIES: Headache Psychiatric: DENIES: Confusion (Huong Richard) GI Exam Vitals I&O Vital Signs Date Time Temp Pulse Resp B/P Pulse Ox O2 Delivery O2 Flow Rate FiO2 09/19/16 11:23 Room Air 21 09/19/16 08:00 97.8 68 20 133/81 98 09/19/16 04:00 98.1 98 18 110/73 96 09/19/16 00:00 97.9 54 18 116/70 96 09/18/16 20:00 98.3 79 18 124/ 97 09/18/16 16:00 98.3 72 18 137/86 97 09/18/16 12:00 98.0 75 18 130/76 97 I/O 09/18/16 09/18/16 09/18/16 09/19/16 09/19/16 09/19/16 07:00 15:00 23:00 07:00 15:00 23:00 Intake Total 240 ml 960 ml 480 ml 480 ml Balance 240 ml 960 ml 480 ml 480 ml Intake Oral 240 ml 960 ml 480 ml 480 ml # Voids 1 3 2 2 # Bowel Movements 0 1 0 0 Imaging Last Impressions Gall Bladder Ultrasound 09/18/16 0000 Signed Impressions: Service Date/Time: Sunday, September 18, 2016 10:56 - CONCLUSION: 1. Possible fatty infiltration of the liver. 2. The gallbladder is contracted. 3. Common duct is within normal limits. Daljit Teran MD Chest X-Ray 09/13/16 1513 Signed Impressions: Service Date/Time: August 15:18 - CONCLUSION: No acute disease. Cayetano Shea Jr., MD Laboratory Test 09/18/16 09/19/16 18:21 07:24 Sodium Level 139 MEQ/L 140 MEQ/L Potassium Level 4.3 MEQ/L 4.9 MEQ/L Chloride Level 102 MEQ/L 102 MEQ/L Carbon Dioxide Level 30.2 MEQ/L 31.7 MEQ/L Anion Gap 7 MEQ/L 6 MEQ/L Blood Urea Nitrogen 19 MG/DL 21 MG/DL Creatinine 0.75 MG/DL 0.77 MG/DL Estimat Glomerular Filtration 107 ML/MIN 104 ML/MIN Rate Random Glucose 112 MG/DL 106 MG/DL Calcium Level 9.2 MG/DL 9.2 MG/DL Total Bilirubin 0.3 MG/DL 0.5 MG/DL Aspartate Amino Transf 136 U/L 128 U/L (AST/SGOT) Alanine Aminotransferase 231 U/L 234 U/L (ALT/SGPT) Alkaline Phosphatase 86 U/L 80 U/L Total Protein 6.7 GM/DL 6.7 GM/DL Albumin 3.0 GM/DL 3.0 GM/DL Date/Time Procedure Status Source Growth 09/16/16 12:40 Aerobic Blood Culture - Preliminary Resulted Blood Peripheral NO GROWTH IN 3 DAYS 09/16/16 12:40 Anaerobic Blood Culture - Preliminary Resulted Blood Peripheral NO GROWTH IN 3 DAYS 09/15/16 08:15 Gram Stain - Final Complete Sputum Expectorated Sputum 09/15/16 08:15 Sputum Culture - Final Complete Sputum Expectorated Sputum HEAVY GROWTH NORMAL RESPIRATORY LINETTE 09/15/16 08:15 Cryptosporidium Exam - Final Complete Stool Stool NEGATIVE - NO CRYPTOSPORIDIUM ANTIGEN... 09/15/16 08:15 Giardia Antigen (DAMARI) - Final Complete Stool Stool NEGATIVE - NO GIARDIA ANTIGEN DETECTE... 09/15/16 08:15 - Final Complete Stool Stool Physical Examination HEENT: Normocephalic; atraumatic; no jaundice. CHEST: CTA CARDIAC: RRR ABDOMEN: Soft, nondistended, nontender; no hepatosplenomegaly; bowel sounds are present in all four quadrants. EXTREMITIES: No clubbing, cyanosis, or edema. SKIN: Normal; no rash; no jaundice. [employer] DIRECT[employer]: No focal deficits; alert and oriented times three. (Huong Richard) Assessment and Plan Plan ASSESSMENT: - Elevated LFTs. He denies any known history of liver disease. He does drink 1 pint of whiskey per day. He came back positive for hepatitis C antibodies, But denies any known history of hepatitis. Gall Bladder Ultrasound (09/18/16)- --->1. Possible fatty infiltration of the liver. 2. The gallbladder is contracted. 3. Common duct is within normal limits. Will check hepatitis C genotype and viral load. This is most likely related to alcohol abuse on underlying hepatitis C, but Will check liver workup to rule out other underlying etiology - Hepatitis C antibodies. Genotype and viral load. - C. difficile diarrhea, first episode. Patient was recently treated with antibiotics prior to this hospitalization for a skin infection to his right finger. He was started on Flagyl 500 mg by mouth every 8 hours and he reports that his diarrhea has improved. She is now having 2-3 softly formed stools per day. - COPD exacerbation, prednisone/nebs per primary. PLAN: - Low fat diet - Hepatitis C Genotype and Viral load - DAISY, ASMA, AMA - Monitor LFTs - Recommend complete ETOH cessation- d/w patient and he is agreeable - Cont. Flagyl x 10 days - Supportive care - Further recommendations to follow based on results of above - Pt seen and examined by Dr. Fuller and myself and this note is written on his behalf (Huong Richard) Physician Comments Seen and examined with JATINDER, doing well. Diarrhea improving, continue flagyl. Testing for Hep C ordered. Can be dced home with gi fu. Thank you (Cristhian Fuller MD) Huong Richard Sep 19, 2016 11:58 Cristhian Fuller MD Sep 19, 2016 19:37
[2016-09-19 12:00] VITALS: BP 128/74; PULSE 65; RESP 20; TEMP 98; O2SAT 95
--- NOTE | 2016-09-19 12:14 | HHI.PR ---
Subjective Remarks Follow up on abdominal pain, C. difficile diarrhea, newly diagnosed hepatitis C Patient laying in bed, afebrile, stated he had 2 bowel movements which is still loose, no significant abdominal pain today Objective Vitals Vital Signs Date Time Temp Pulse Resp B/P Pulse Ox O2 Delivery O2 Flow Rate FiO2 09/19/16 11:23 Room Air 21 09/19/16 08:00 97.8 68 20 133/81 98 09/19/16 04:00 98.1 98 18 110/73 96 09/19/16 00:00 97.9 54 18 116/70 96 09/18/16 20:00 98.3 79 18 124/ 97 09/18/16 16:00 98.3 72 18 137/86 97 I/O 09/18/16 09/18/16 09/18/16 09/19/16 09/19/16 09/19/16 07:00 15:00 23:00 07:00 15:00 23:00 Intake Total 240 ml 960 ml 480 ml 480 ml Balance 240 ml 960 ml 480 ml 480 ml Intake Oral 240 ml 960 ml 480 ml 480 ml # Voids 1 3 2 2 # Bowel Movements 0 1 0 0 Result Diagram: 09/19/16 0724 Objective Remarks GENERAL: This is a well-nourished, well-developed patient, in no apparent distress. SKIN: No rashes, warm and dry HEAD: Atraumatic. Normocephalic. EYES: Pupils equal round and reactive. Extraocular motions intact. No scleral icterus. ENT: Nose without bleeding, or drainage, Airway patent. NECK: Trachea midline. Supple CARDIOVASCULAR: Regular rate and rhythm without murmurs, gallops, or rubs. RESPIRATORY: Fair air entry bilaterally. No wheezes, rales, or rhonchi. GASTROINTESTINAL: Abdomen soft, non-tender, nondistended. Positive bowel sounds MUSCULOSKELETAL: Extremities without clubbing, cyanosis, or edema. Pedal pulses appreciated NEUROLOGICAL: Awake and alert. Moves all extremity. Normal speech.no focal neurological deficit Procedures None. A/P Problem List: (1) Acute exacerbation of chronic obstructive pulmonary disease (COPD) ICD Code: J44.1 Status: Acute (2) Bronchitis ICD Code: J40 Status: Acute (3) Tobacco abuse ICD Code: Z72.0 Status: Chronic (4) Alcohol abuse ICD Code: F10.10 Status: Chronic (5) C. difficile colitis ICD Code: A04.7 Status: Acute Assessment and Plan 56 year old male with PMH of TIA, COPD, presents with increasing shortness of breath. Patient states that about 2 days ago he felt that he is coming down with a cold and thought that he has pneumonia because he has increased cough, feverish, and chills. Reports lack of appetite and has been having diarrhea for 3 days. Patient states also that he recently had a fall while getting into the curb and was diagnosed with rib fractures. His cough has been progressing and he did not take anything to relieved his symptoms that he came to the hospital. Acute on Chronic COPD exacerbation Reviewed: Chest x-ray no acute disease. Tmax 100.8 at admission, no fevers since. No leukocytosis. - DC Levaquin 750mg IV with C. difficile and no further evidence of infection - IV Solu-Medrol 40 mg, tapered to twice daily, now changed Prednisone with taper at discharge. - DuoNeb's QID scheduled, albuterol every 2 hours prn SOB - O2 2 L nasal cannula, wean off keep O2 sat greater than 90%, now stable on room air -Guaifenesin bid -Sputum culture with normal respiratory clarissa Accelerated hypertension - BP is not well-controlled, but during better after starting antihypertensives. -Amlodipine 10 mg -Started lisinopril 20 mg, increased to 40mg -Clonidine as needed -Monitor BP, adjust antihypertensives as needed C. difficile diarrhea - Lactinex 3 times a day - Simethicone prn for bloating -ID following - Start Flagyl 500 mg every 8 hours for 2 weeks Positive Blood Cultures: 1/4 blood cultures upon admission positive for pleomorphic gram positive rods -repeat blood cultures with no growth -consulted infectious disease, appreciate recommendations Alcohol abuse - [place] protocol - Monitor for withdrawal Tobacco abuse - Counseled on cessation - Nicotine patch Hyponatremia Sodium improved to 139 with IVF on repeat CMP -Resolved RUQ abdominal pain Pt complained of abdominal pain 4/4. LFTs were elevated compared to previous values. RUQ US with ? fatty infiltration, no acute process. Hep profile + for HCV. -L FT still high we'll consult GI will need genotype vial load - pain control as needed. Prophylaxis: SCDs. Zantac. Richy Benton MD Sep 19, 2016 12:13
[2016-09-19 16:00] VITALS: BP 121/72; PULSE 63; RESP 20; TEMP 98; O2SAT 96
[2016-09-19 21:22] VITALS: BP 125/79; PULSE 62; RESP 16; TEMP 98.2; O2SAT 96
[2016-09-20] MEDS: metroNIDAZOLE 500 MG TAB PO SCH (06:23)
[2016-09-20 06:43] LABS: TOTAL BILIRUBIN ADULT 0.5 MG/DL (0.2-1.0)
[2016-09-20 06:52] LABS: INDIRECT BILIRUBIN 0.4 MG/DL (0.0-0.8)
[2016-09-20] MEDS: guaiFENesin E.R. 600 MG TAB PO SCH (07:58)
[2016-09-20] MEDS: NICOTINE 21 MG/24 HR PATCH T-DERMAL SCH (07:58)
[2016-09-20] MEDS: THIAMINE HCL 100 MG TAB PO SCH (07:58)
[2016-09-20] MEDS: amLODIPine BESYLATE 5 MG TAB PO SCH (07:58)
[2016-09-20] MEDS: predniSONE 10 MG TAB PO SCH (07:58)
[2016-09-20] MEDS: FAMOTIDINE 20 MG TAB PO SCH (07:59)
[2016-09-20] MEDS: LISINOPRIL 20 MG TAB PO SCH (07:59)
[2016-09-20] MEDS: LACTOBACILLUS ACIDOPHILUS TAB PO SCH (07:59)
[2016-09-20] MEDS: SODIUM CHLORIDE 0.9% FLUSH 10 ML FLUSH IV FLUSH SCH (08:01)
[2016-09-20 08:44] VITALS: BP 120/72; PULSE 64; RESP 18; TEMP 97.4; O2SAT 97
[2016-09-20] MEDS ORDERED: METR-1 PO (11:11)
[2016-09-20] MEDS ORDERED: PRED20 PO (11:11)
--- NOTE | 2016-09-20 11:11 | HHI.DS ---
Discharge Summary Admission Date Sep 16, 2016 at 10:26 Discharge Date: Sep 20, 2016 Admitting Diagnosis respiratory distress, acute COPD exacerbation, bronchitis (1) Acute exacerbation of chronic obstructive pulmonary disease (COPD) ICD Code: J44.1 Diagnosis: Principal (2) Bronchitis ICD Code: J40 Diagnosis: Principal (3) Tobacco abuse ICD Code: Z72.0 Diagnosis: Secondary (4) Alcohol abuse ICD Code: F10.10 Diagnosis: Secondary (5) C. difficile colitis ICD Code: A04.7 Diagnosis: Principal (6) Hepatitis C ICD Code: B19.20 Procedures None. Brief History - From Admission Patient is a 56 year old male with primary medical history of TIA, COPD, respiratory distress who came in to the hospital with complaints of increasing shortness of breath. Patient states that about 2 days ago he felt that he is coming down with a cold and thought that he has pneumonia because he has increased cough, feverish, and chills. Reports lack of appetite and has been having diarrhea for 3 days. Patient states also that he recently had a fall while getting into the curb and was diagnosed with rib fractures. His cough has been progressing and he did not take anything to relieved his symptoms that he came to the hospital. Patient also states that he's been having diarrhea 3 days. Complaints of mild abdominal pain and lower abdominal quadrant area. Reports mild cramping. Denies any nausea, vomiting. Denies palpitations, headaches, dizziness. In the ED, patient was given Zosyn, Solu-Medrol and nebulization treatment. Walk test was done. Patient has increasing shortness of breath with 10-20 feet of ambulation without oxygen. CBC/BMP: 09/19/16 0724 Significant Findings Laboratory Tests Test 09/18/16 09/18/16 09/18/16 09/19/16 09:45 11:43 18:21 07:24 Carbon Dioxide Level 32.7 MEQ/L (21.0-32.0) Blood Urea Nitrogen 21 MG/DL (7-18) 19 MG/DL (7-18) 21 MG/DL (7-18) Random Glucose 166 MG/DL 112 MG/DL (74-106) (74-106) Aspartate Amino Transf 137 U/L (15-37) 136 U/L (15-37) 128 U/L (15-37) (AST/SGOT) Alanine Aminotransferase 213 U/L (12-78) 231 U/L (12-78) 234 U/L (12-78) (ALT/SGPT) Albumin 2.9 GM/DL 3.0 GM/DL 3.0 GM/DL (3.4-5.0) (3.4-5.0) (3.4-5.0) Hepatitis C Antibody REACTIVE (NEGATIVE) Test 09/20/16 05:13 Aspartate Amino Transf 95 U/L (15-37) (AST/SGOT) Alanine Aminotransferase 208 U/L (12-78) (ALT/SGPT) Albumin 3.0 GM/DL (3.4-5.0) Imaging Last Impressions Gall Bladder Ultrasound 09/18/16 0000 Signed Impressions: Service Date/Time: Sunday, September 18, 2016 10:56 - CONCLUSION: 1. Possible fatty infiltration of the liver. 2. The gallbladder is contracted. 3. Common duct is within normal limits. Daljit Teran MD Chest X-Ray 09/13/16 1513 Signed Impressions: Service Date/Time: August 15:18 - CONCLUSION: No acute disease. Cayetano Shea Jr., MD PE at Discharge GENERAL: This is a well-nourished, well-developed patient, in no apparent distress. SKIN: No rashes, warm and dry HEAD: Atraumatic. Normocephalic. EYES: Pupils equal round and reactive. Extraocular motions intact. No scleral icterus. ENT: Nose without bleeding, or drainage, Airway patent. NECK: Trachea midline. Supple CARDIOVASCULAR: Regular rate and rhythm without murmurs, gallops, or rubs. RESPIRATORY: CTA B/L GASTROINTESTINAL: Abdomen soft, non-tender, nondistended. Positive bowel sounds MUSCULOSKELETAL: Extremities without clubbing, cyanosis, or edema. Pedal pulses appreciated NEUROLOGICAL: Awake and alert. Moves all extremity. Normal speech.no focal neurological deficit Pt update on day of discharge f/u for COPD exacerbation and C diff. patient stat SOB has improved drastically. denied any SOB or cough. He stated diarrhea resolved. remains afebrile. asking to go home. Hospital Course 56 year old male with PMH of TIA, COPD, presents with increasing shortness of breath. Patient states that about 2 days ago he felt that he is coming down with a cold and thought that he has pneumonia because he has increased cough, feverish, and chills. Reports lack of appetite and has been having diarrhea for 3 days. Patient states also that he recently had a fall while getting into the curb and was diagnosed with rib fractures. His cough has been progressing and he did not take anything to relieved his symptoms that he came to the hospital. Acute on Chronic COPD exacerbation Reviewed: Chest x-ray no acute disease. Tmax 100.8 at admission, no fevers since. No leukocytosis. - initially on Levaquin 750mg IV but d/c due to C. difficile and no further evidence of infection - put IV Solu-Medrol 40 mg, tapered to twice daily, then changed Prednisone with taper. - DuoNeb's QID scheduled, albuterol every 2 hours prn SOB - O2 2 L nasal cannula, wean off keep O2 sat greater than 90%, then was stable on RA. -Guaifenesin bid -Sputum culture with normal respiratory clarissa Accelerated hypertension - BP is not well-controlled, but during better after starting antihypertensives. -Amlodipine 10 mg -was put on lisinopril 20 mg then increased to 40mg -Clonidine as needed -Monitor BP, adjust antihypertensives as needed C. difficile diarrhea - Lactinex 3 times a day - Simethicone prn for bloating -ID following - Start Flagyl 500 mg every 8 hours for 2 weeks Positive Blood Cultures: 1/4 blood cultures upon admission positive for pleomorphic gram positive rods -repeat blood cultures with no growth -consulted infectious disease, appreciate recommendations Alcohol abuse - [facility] protocol - Monitor for withdrawal Tobacco abuse - Counseled on cessation - Nicotine patch Hyponatremia Sodium improved to 139 with IVF on repeat CMP -Resolved Hepatitis C -us showed Possible fatty infiltration of the liver. 2. The gallbladder is contracted. 3. Common duct is within normal limits. -GI consulted. -work up obtained. -f/u with GI was outpatient. Prophylaxis: SCDs. Zantac. Pt Condition on Discharge: Good Discharge Disposition: Discharge Home Discharge Time: > 30 minutes Discharge Instructions DIET: Follow Instructions for: Heart Healthy Diet Activities you can perform: Regular-No Restrictions Follow up Referrals: Gastroenterology - 1 Week with Cristhian Fuller MD PCP Follow-up - 1 Week with Delores Draper MD New Medications: Albuterol 8.5 GM Inh (Proair Hfa 8.5 GM Inh) 90 Mcg/Act Aer 2 PUFF INH Q4-6H 108 mcg/actuation PRN SHORTNESS OF BREATH #1 Ref 0 INHALER Metronidazole (Flagyl) 500 Mg Tab 500 MG PO TID Infection #21 Ref 0 TAB Prednisone (Prednisone) 20 Mg Tab 20 MG PO DIRECTED 40 MG twice a day x 3 days, then 20 MG daily x 3 days, then 10 MG daily x 3 days Inflammation #11 Ref 0 TAB Amlodipine (Norvasc) 5 Mg Tab 10 MG PO DAILY Blood Pressure Management #30 TAB Famotidine (Famotidine) 20 Mg Tab 20 MG PO Q12HR Reflux #30 TAB Guaifenesin ER 12 HR (Mucinex ER 12 HR) 600 Mg Alesha 600 MG PO BID Cough #10 TAB Lactobacillus Acidophilus (Acidophilus/l-Sporogenes) 1 Tab Tab 1 TAB PO TID Diarrhea #60 TAB Lisinopril (Lisinopril) 20 Mg Tab 40 MG PO DAILY Blood Pressure Management #60 TAB Nicotine Patch (Nicotine Patch) 21 Mg/24 Hr Patch 1 PATCH T-DERMAL DAILY smoking #30 PATCH Mitzy Johnson MD Sep 20, 2016 11:11
[2016-09-23 17:53] LABS: HCV RNA PCR IU/ML 639000 IU/mL (()); HCV RNA PCR LOGIU/ML 5.81 (())
[2016-09-23 23:50] LABS: HEPATITIS C RNA GENOTYPE 1a (())
[2016-09-23 23:52] LABS: MITOCHONDRIAL ABS LESS THAN 20.0 U (())
== END 2016-09-20 12:08 | disposition home or self-care (01) | DRG 191 ==
LOC: NEPA 14:48 → NEDA 17:08 → NEDH 09-14 00:43 → NEPFCDU 09-14 08:36 → OBSVTOIN 09-16 10:26 → N04A 09-16 14:35
PROVIDERS: ADMIT Family Medicine; ATTEND Family Medicine
DX: J44.1 Chronic obstructive pulmonary disease with (acute) exacerbation (principal); A04.7 Enterocolitis due to Clostridium difficile; R78.81 Bacteremia; E87.1 Hypo-osmolality and hyponatremia; J40 Bronchitis, not specified as acute or chronic; I10 Essential (primary) hypertension; F10.10 Alcohol abuse, uncomplicated; Z86.73 Personal history of transient ischemic attack (TIA), and cerebral infarction without residual deficits; F17.210 Nicotine dependence, cigarettes, uncomplicated; B19.20 Unspecified viral hepatitis C without hepatic coma; F12.90 Cannabis use, unspecified, uncomplicated; Z59.0 Homelessness
CPT/HCPCS: 71010; 76705; 80048; 80053; 80074; 80076; 81001; 82746; 83520; 83605; 83690; 83735; 84100; 85025; 86038; 86256; 87040; 87070; 87205; 87328; 87329; 87493; 87506; 87522; 87804; 87902; 93005; 94640; 94664; 96365; G0378; J1956; J2543; J2920; J2930; J3370; J7030; J7050; J7512

== ENCOUNTER 2016-12-26 22:59 | Emergency (ER) | payer OTHER ==
[~2016-12-26] VITALS: Ht 175.3 cm; Wt 80.0 kg
[~2016-12-26 22:59] MED LIST changes: +ALBUAER3 INH; +AMLO5 PO; +FAMO20TA2 PO; +LACT PO; +LISI-515 PO; +METR-1 PO; +MUCI600T PO; -NAPR250T57 PO; +NICO21DI2 T-DERMAL; +PRED20 PO; -Z.0.NO CURRENT MEDS
[2016-12-26 23:10] VITALS: BP 143/87; PULSE 91; RESP 16; TEMP 98.3; O2SAT 97
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
== END 2016-12-26 23:22 ==
LOC: NEDAMB 22:59
DX: S51.011A Laceration without foreign body of right elbow, initial encounter (principal); S00.81XA Abrasion of other part of head, initial encounter; F10.129 Alcohol abuse with intoxication, unspecified; J44.9 Chronic obstructive pulmonary disease, unspecified; Y35.813A Legal intervention involving manhandling, suspect injured, initial encounter; Z86.73 Personal history of transient ischemic attack (TIA), and cerebral infarction without residual deficits; Z72.0 Tobacco use
CPT/HCPCS: 99281